=== PATIENT | female | born 1965 | race Hispanic/Latino ===

== ENCOUNTER 2019-03-12 18:44 | Emergency (ER) | payer SELFPAY ==
--- OUTSIDE RECORDS SUMMARY | 2019-03-12 18:46 | XMS REPORT ---
:1965 [facility] Address [address] [place] [address] Dr. James [address] [place] [address] Care Team Providers Name Role Phone Unavailable Unavailable Unavailable Problems This patient has no known problems. Allergies, Adverse Reactions, Alerts This patient has no known allergies or adverse reactions. Medications This patient has no known medications.
--- NOTE | 2019-03-12 19:49 | RAD REPORT ---
EXAM DESCRIPTION: CT - Head Brain Wo Cont - 03/12/2019 7:37 pm CLINICAL HISTORY: Headache COMPARISON: None TECHNIQUE: Computed axial tomography of the head was obtained. IV contrast was not requested. All CT scans are performed using dose optimization technique as appropriate and may include automated exposure control or mA/KV adjustment according to patient size. FINDINGS: An intracranial bleed is not seen . The ventricles are normal in caliber. No extra-axial fluid collection is noted. It appears that the patient has had a right mastoidectomy 4 centimeter low-density fluid collection within the posterior left aspect of the posterior fossa may represent an arachnoid cyst. Fluid within the sinuses/ mastoids is not seen. IMPRESSION: No acute intracranial abnormality is seen. If patient's symptoms persist MRI of the bra in would be recommended.
[2019-03-12] MEDS ORDERED: ACETAMINOPHEN 325 MG TABLET ONE (19:51)
--- NOTE | 2019-03-12 20:11 | ER ---
Nurse's Notes [facility] Name: Brianna Avila Age: 54 yrs Sex: Female : 1965 Arrival Date: 03/12/2019 Time: 18:47 Bed 20 Private MD: Diagnosis: Acute headache. Hypertension Presentation: 03/12 19:00 Presenting complaint: Patient states: i have a bad headache at the top of my head rr5 started today. I checked my BP it's 150/88 mmHg. I've been taking BP medicine before but I stop it for a long time. I feel my neck is swollen and I have nausea an vomiting. 19:00 Transition of care: patient was not received from another setting of care. Onset of rr5 symptoms was March 12, 2019. Risk Assessment: Do you want to hurt yourself or someone else? Patient reports no desire to harm self or others. Initial Sepsis Screen: Does the patient meet any 2 criteria? No. Patient's initial sepsis screen is negative. Does the patient have a suspected source of infection? No. Patient's initial sepsis screen is negative. Care prior to arrival: None. 19:00 Method Of Arrival: Ambulatory rr5 19:00 Acuity: IESHA 3 rr5 Triage Assessment: 19:40 Pain: Pain began 1 hour ago. Also complains of no other associated symptoms. 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 - Social history:: Smoking status: Patient/guardian denies using tobacco, Patient/guardian denies using alcohol, street drugs. - Ebola Screening: : Patient negative for fever greater than or equal to 101.5 degrees Fahrenheit, and additional compatible Ebola Virus Disease symptoms Patient denies exposure to infectious person Patient denies travel to an Ebola-affected area in the 21 days before illness onset. Screenin:58 Abuse screen: Denies threats or abuse. Denies injuries from another. Nutritional lp1 screening: No deficits noted. Tuberculosis screening: No symptoms or risk factors identified. Fall Risk None identified. Assessment: 19:40 General: Appears in no apparent distress. Behavior is calm, cooperative, appropriate lp1 for age. Pain: Complains of pain in head Pain currently is 7 out of 10 on a pain scale. Quality of pain is described as aching. Neuro: Level of Consciousness is awake, alert, obeys commands, Oriented to person, place, time, situation, Gait is steady, Pupils are PERRLA, Reports headache frontal area. Cardiovascular: Patient's skin is warm and dry. Respiratory: Respiratory effort is even, unlabored. GI: No deficits noted. : No deficits noted. EENT: No deficits noted. Derm: Skin is pink, warm \T\ dry. Musculoskeletal: No deficits noted. 20:24 Reassessment: Patient appears in no apparent distress at this time. Patient is alert, lp1 oriented x 3, equal unlabored respirations, skin warm/dry/pink. Patient states feeling better. Vital Signs: 19:00 BP 186 / 72; Pulse 64; Resp 17; Temp 98.5; Pulse Ox 99% ; Weight 87.54 kg; Height 5 ft. rr5 4 in. (162.56 cm); Pain 6/10; 19:40 BP 137 / 83; Pulse 60; Resp 18; Pulse Ox 98% on R/A; Pain 7/10; lp1 19:57 BP 140 / 83; Pulse 62; Resp 18; Pulse Ox 100% on R/A; lp1 20:23 BP 149 / 74; Pulse 60; Resp 16; Pulse Ox 99% on R/A; lp1 19:00 Body Mass Index 33.13 (87.54 kg, 162.56 cm) rr5 ED Course: 18:47 Patient arrived in ED. mr 19:04 Triage completed. rr5 19:07 Arm band placed on. rr5 19:12 Dae Mccauley MD is Attending Physician. pkl 19:29 Carla Alcantara, LEVAR is Primary Nurse. lp1 19:37 CT Head Brain wo Cont In Process Unspecified. EDMS 19:40 Patient has correct armband on for positive identification. lp1 19:58 No provider procedures requiring assistance completed. lp1 20:17 Patient did not have IV access during this emergency room visit. lp1 Administered Medications: 19:48 Drug: Tylenol 650 mg Route: PO; lp1 20:00 Follow up: Response: No adverse reaction lp1 Outcome: 20:06 Discharge ordered by . sonia 20:18 Discharged to home ambulatory. lp1 20:18 Condition: good 20:18 Discharge instructions given to patient, Instructed on discharge instructions, follow up and referral plans. medication usage, Demonstrated understanding of instructions, follow-up care, medications, Prescriptions given X 1. 20:24 Patient left the ED. lp1 Signatures: Dispatcher [employer] EDMS Dae Mccauley MD MD pkl Riverdomonique Debi mr JaquezCarla youssef, RN RN lp1 Abraham Dsouza RN RN rr5
--- NOTE | 2019-03-12 20:11 | EDPHYS ---
Physician Documentation [facility] Name: Brianna Avila Age: 54 yrs Sex: Female : 1965 Arrival Date: 03/12/2019 Time: 18:47 Bed 20 Private MD: ED Physician Dae Mccauley HPI: 03/12 19:25 This 54 yrs old Female presents to ER via Ambulatory with complaints of High pkl Blood Pressure, Headache, Stiff Neck. 19:25 The patient has elevated blood pressure and discovered this at home. Onset: The pkl symptoms/episode began/occurred today. Associated signs and symptoms: Pertinent positives: nausea. 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 - Social history:: Smoking status: Patient/guardian denies using tobacco, Patient/guardian denies using alcohol, street drugs. - Ebola Screening: : Patient negative for fever greater than or equal to 101.5 degrees Fahrenheit, and additional compatible Ebola Virus Disease symptoms Patient denies exposure to infectious person Patient denies travel to an Ebola-affected area in the 21 days before illness onset. ROS: 19:25 Eyes: Negative for injury, pain, redness, and discharge, ENT: Negative for injury, pkl pain, and discharge, Neck: Negative for injury, pain, and swelling, Cardiovascular: Negative for chest pain, palpitations, and edema, Respiratory: Negative for shortness of breath, cough, wheezing, and pleuritic chest pain. 19:25 Abdomen/GI: Positive for nausea. 19:25 Back: Negative for acute changes. 19:25 : Negative for urinary symptoms. 19:25 MS/extremity: Negative for acute changes. 19:25 Skin: Negative for rash. 19:25 Neuro: Positive for headache, of the top of head. Exam: 19:25 Head/Face: Normocephalic, atraumatic. Eyes: Pupils equal round and reactive to light, pkl extra-ocular motions intact. Lids and lashes normal. Conjunctiva and sclera are non-icteric and not injected. Cornea within normal limits. Periorbital areas with no swelling, redness, or edema. ENT: Nares patent. No nasal discharge, no septal abnormalities noted. Tympanic membranes are normal and external auditory canals are clear. Oropharynx with no redness, swelling, or masses, exudates, or evidence of obstruction, uvula midline. Mucous membranes moist. Neck: Trachea midline, no thyromegaly or masses palpated, and no cervical lymphadenopathy. Supple, full range of motion without nuchal rigidity, or vertebral point tenderness. No Meningismus. Chest/axilla: Normal chest wall appearance and motion. Nontender with no deformity. No lesions are appreciated. Cardiovascular: Regular rate and rhythm with a normal S1 and S2. No gallops, murmurs, or rubs. Normal PMI, no JVD. No pulse deficits. Respiratory: Lungs have equal breath sounds bilaterally, clear to auscultation and percussion. No rales, rhonchi or wheezes noted. No increased work of breathing, no retractions or nasal flaring. Abdomen/GI: Soft, non-tender, with normal bowel sounds. No distension or tympany. No guarding or rebound. No evidence of tenderness throughout. Back: No spinal tenderness. No costovertebral tenderness. Full range of motion. Skin: Warm, dry with normal turgor. Normal color with no rashes, no lesions, and no evidence of cellulitis. MS/ Extremity: Pulses equal, no cyanosis. Neurovascular intact. Full, normal range of motion. Neuro: Awake and alert, GCS 15, oriented to person, place, time, and situation. Cranial nerves II-XII grossly intact. Motor strength 5/5 in all extremities. Sensory grossly intact. Cerebellar exam normal. Normal gait. Vital Signs: 19:00 BP 186 / 72; Pulse 64; Resp 17; Temp 98.5; Pulse Ox 99% ; Weight 87.54 kg; Height 5 ft. rr5 4 in. (162.56 cm); Pain 6/10; 19:40 BP 137 / 83; Pulse 60; Resp 18; Pulse Ox 98% on R/A; Pain 7/10; lp1 19:57 BP 140 / 83; Pulse 62; Resp 18; Pulse Ox 100% on R/A; lp1 20:23 BP 149 / 74; Pulse 60; Resp 16; Pulse Ox 99% on R/A; lp1 19:00 Body Mass Index 33.13 (87.54 kg, 162.56 cm) rr5 MDM: 19:12 Patient medically screened. pkl 20:05 Data reviewed: vital signs, nurses notes, radiologic studies, CT scan. pk 03/12 20:15 Order name: Urine Dipstick--Ancillary (enter results) ar5 03/12 20:15 Order name: Urine --Ancillary (enter results) ar 03/12 19:25 Order name: CT Head Brain wo Cont; Complete Time: 20:01 pkl 03/12 20:06 Order name: Urine Test (obtain specimen); Complete Time: 20:14 lp1 Administered Medications: 19:48 Drug: Tylenol 650 mg Route: PO; lp1 20:00 Follow up: Response: No adverse reaction lp1 Disposition: 03/12/19 20:06 Discharged to Home. Impression: Acute headache. Hypertension. - Condition is Stable. - Prescriptions for Lisinopril 20 mg Oral Tablet - take 1 tablet by ORAL route once daily; 30 tablet. - Medication Reconciliation Form, Thank You Letter, Antibiotic Education, Prescription Opioid Use, Work release form form. - Follow up: Private Physician; When: 2 - 3 days; Reason: Re-evaluation by your physician. - Problem is new. - Symptoms have improved. Signatures: Dispatcher [employer] EDDae Maloney MD MD pkl Carla Alcantara RN RN lp1 Abraham Dsouza RN RN rr5 Corrections: (The following items were deleted from the chart) 20:24 20:06 03/12/2019 20:06 Discharged to Home. Impression: Acute headache. Hypertension. lp1 Condition is Stable. Forms are Medication Reconciliation Form, Thank You Letter, Antibiotic Education, Prescription Opioid Use. Follow up: Private Physician; When: 2 - 3 days; Reason: Re-evaluation by your physician. Problem is new. Symptoms have improved. pkl
[2019-03-12 20:31] LABS: Urine Blood TRACE (NEG); Urine Glucose NEGATIVE (NEG); Urine Protein NEGATIVE (NEG); Urine Specific Gravity 1.015 (1.005-1.030)
[2019-03-12 21:57] VITALS: TEMP 98.5; O2SAT 99
[2019-03-12 22:02] VITALS: BP 149/74
== END 2019-03-12 20:24 | disposition home or self-care (01) ==
LOC: ER 18:44
DX: I10 Essential (primary) hypertension (principal); Z88.5 Allergy status to narcotic agent
CPT/HCPCS: 70450; 81003; 81025; 99283

== ENCOUNTER 2019-06-05 01:41 | Emergency (ER) | payer SELFPAY ==
--- OUTSIDE RECORDS SUMMARY | 2019-06-05 01:43 | XMS REPORT ---
:1965 [facility] Address [address] [place] [address] Dr. James [address] [place] [address] Care Team Providers Name Role Phone Unavailable Unavailable Unavailable Problems This patient has no known problems. Allergies, Adverse Reactions, Alerts This patient has no known allergies or adverse reactions. Medications This patient has no known medications.
[2019-06-05 03:09] LABS: Absolute Lymphocytes (CBC) 2.9 K/uL (0.7-4.9); Basophils % 0.5 % (0-1.3); Hematocrit 40.5 % (36.0-45.0); Lymphocytes % 33.4 % (15.3-44.8); MPV 8.4 fL (7.6-11.3)
[2019-06-05 03:15] LABS: Potassium 3.5 mmol/L (3.5-5.1)
--- NOTE | 2019-06-05 03:33 | ER ---
Nurse's Notes [facility] Name: Brianna Avila Age: 54 yrs Sex: Female : 1965 Arrival Date: 06/05/2019 Time: 01:49 Bed 15 Private MD: Diagnosis: Hypertension Presentation: 06/04 02:02 Chief complaint: Patient states: i checked my blood pressure and it was 174/100 at home mg2 and i also have pain behind my shoulder blades. i recently lost my last Tuesday and I also lost my meds for blood pressure and last time i took it was 6 days ago. Coronavirus screen: Patient denies fever greater than 100.4F, cough, shortness of breath, or difficulty breathing. Proceed with normal triage process. Ebola Screen: No symptoms or risks identified at this time. Initial Sepsis Screen: Does the patient meet any 2 criteria? No. Patient's initial sepsis screen is negative. Does the patient have a suspected source of infection? No. Patient's initial sepsis screen is negative. Risk Assessment: Do you want to hurt yourself or someone else? Patient reports no desire to harm self or others. 02:02 Method Of Arrival: Ambulatory mg2 02:02 Acuity: IESHA 3 mg2 02:12 Onset of symptoms was June 04, 2019. 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 - Social history:: Smoking status: Patient denies any tobacco usage or history of. Patient/guardian denies using alcohol, street drugs, IV drugs. Screenin:08 Abuse screen: Denies threats or abuse. Denies injuries from another. Nutritional mg2 screening: No deficits noted. Tuberculosis screening: No symptoms or risk factors identified. Fall Risk None identified. Assessment: 02:10 General: Appears in no apparent distress. comfortable, Behavior is calm, cooperative. mg2 Pain: Complains of pain in back of the upper back. Neuro: Level of Consciousness is awake, alert, obeys commands, Oriented to person, place, time, situation. Cardiovascular: Capillary refill < 3 seconds Patient's skin is warm and dry. Respiratory: Airway is patent Respiratory effort is even, unlabored, Respiratory pattern is regular, symmetrical. GI: No signs and/or symptoms were reported involving the gastrointestinal system. : No signs and/or symptoms were reported regarding the genitourinary system. EENT: No signs and/or symptoms were reported regarding the EENT system. Derm: Skin is intact, is healthy with good turgor, Skin is pink, warm \T\ dry. normal. Musculoskeletal: Circulation, motion, and sensation intact. Capillary refill < 3 seconds. 03:32 Reassessment: Patient and/or family updated on plan of care and expected duration. Pain ea level reassessed. Patient is alert, oriented x 3, equal unlabored respirations, skin warm/dry/pink. 03:42 Reassessment: Patient and/or family updated on plan of care and expected duration. Pain ea level reassessed. Patient is alert, oriented x 3, equal unlabored respirations, skin warm/dry/pink. Discharge instruction given to patient, verbalized the understanding of instruction. Pt left ED ambulatory accompanied accompanied by daughter. Pt tolerated well. Vital Signs: 02:07 BP 138 / 69; Pulse 56; Resp 18; Temp 98.2; Pulse Ox 100% on R/A; mg2 02:57 BP 119 / 59; Pulse 57; Resp 18; Pulse Ox 100% on R/A; mg2 03:35 BP 130 / 76; Pulse 54; Resp 16; Pulse Ox 97% ; ea ED Course: 01:49 Patient arrived in ED. cf2 01:53 Dae Mccauley MD is Attending Physician. pkl 02:02 Itz Carvajal, LEVAR is Primary Nurse. mg2 02:05 Triage completed. mg2 02:05 Arm band placed on. mg2 02:11 Patient has correct armband on for positive identification. mg2 02:47 XRAY CXR (1 view) In Process Unspecified. EDMS 03:32 No provider procedures requiring assistance completed. ea 03:36 IV discontinued, intact, bleeding controlled, No redness/swelling at site. Pressure ea dressing applied. Administered Medications: No medications were administered Outcome: 03:33 Discharge ordered by . pkl 03:43 Discharged to home ambulatory. ea 03:43 Condition: stable 03:43 Discharge instructions given to patient, Instructed on discharge instructions, follow up and referral plans. medication usage, Demonstrated understanding of instructions, follow-up care, medications, Prescriptions given X 1. 03:44 Patient left the ED. ea Signatures: Dispatcher [employer] Dae Brown MD MD pkl Antunez, Elena RN Itz Dukes ea, RN RN mg2 Frazier, Celesta [facility]
--- NOTE | 2019-06-05 03:34 | EDPHYS ---
Physician Documentation [facility] Name: Brianna Avila Age: 54 yrs Sex: Female : 1965 Arrival Date: 06/05/2019 Time: 01:49 Bed 15 Private MD: ED Physician Dae Mccauley HPI: 06/04 02:34 This 54 yrs old Female presents to ER via Ambulatory with complaints of High pkl Blood Pressure. 02:34 Patient said she was out of BP medication for about 1 week. Checked her BP today and pkl noted it was 174/100. Patient also complained of pain in her upper back and suprapubic region. 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 - Social history:: Smoking status: Patient denies any tobacco usage or history of. Patient/guardian denies using alcohol, street drugs, IV drugs. ROS: 02:34 Eyes: Negative for injury, pain, redness, and discharge, ENT: Negative for injury, pkl pain, and discharge, Neck: Negative for injury, pain, and swelling, Cardiovascular: Negative for chest pain, palpitations, and edema, Respiratory: Negative for shortness of breath, cough, wheezing, and pleuritic chest pain. 02:34 Abdomen/GI: Positive for abdominal pain, of the suprapubic area. 02:34 Back: Positive for pain at rest, of the upper back. 02:34 : Negative for urinary symptoms. 02:34 MS/extremity: Negative for acute changes. 02:34 Skin: Negative for rash. 02:34 Neuro: Negative for altered mental status, loss of consciousness. Exam: 02:34 Head/Face: Normocephalic, atraumatic. Eyes: Pupils equal round and reactive to light, pkl extra-ocular motions intact. Lids and lashes normal. Conjunctiva and sclera are non-icteric and not injected. Cornea within normal limits. Periorbital areas with no swelling, redness, or edema. ENT: Nares patent. No nasal discharge, no septal abnormalities noted. Tympanic membranes are normal and external auditory canals are clear. Oropharynx with no redness, swelling, or masses, exudates, or evidence of obstruction, uvula midline. Mucous membranes moist. Neck: Trachea midline, no thyromegaly or masses palpated, and no cervical lymphadenopathy. Supple, full range of motion without nuchal rigidity, or vertebral point tenderness. No Meningismus. Chest/axilla: Normal chest wall appearance and motion. Nontender with no deformity. No lesions are appreciated. Cardiovascular: Regular rate and rhythm with a normal S1 and S2. No gallops, murmurs, or rubs. Normal PMI, no JVD. No pulse deficits. Respiratory: Lungs have equal breath sounds bilaterally, clear to auscultation and percussion. No rales, rhonchi or wheezes noted. No increased work of breathing, no retractions or nasal flaring. Abdomen/GI: Soft, non-tender, with normal bowel sounds. No distension or tympany. No guarding or rebound. No evidence of tenderness throughout. Back: No spinal tenderness. No costovertebral tenderness. Full range of motion. Skin: Warm, dry with normal turgor. Normal color with no rashes, no lesions, and no evidence of cellulitis. MS/ Extremity: Pulses equal, no cyanosis. Neurovascular intact. Full, normal range of motion. Neuro: Awake and alert, GCS 15, oriented to person, place, time, and situation. Cranial nerves II-XII grossly intact. Motor strength 5/5 in all extremities. Sensory grossly intact. Cerebellar exam normal. Normal gait. Vital Signs: 02:07 BP 138 / 69; Pulse 56; Resp 18; Temp 98.2; Pulse Ox 100% on R/A; mg2 02:57 BP 119 / 59; Pulse 57; Resp 18; Pulse Ox 100% on R/A; mg2 03:35 BP 130 / 76; Pulse 54; Resp 16; Pulse Ox 97% ; ea MDM: 01:54 Patient medically screened. pkl 03:29 Data reviewed: vital signs, nurses notes, lab test result(s), EKG, radiologic studies, pkl plain films. 03:30 ED course: Discussed lab. EKG and X' rays results with patient. Advised to follow with pkl her PCP next week, Patient understood instructions. 06/04 02:18 Order name: CBC with Diff; Complete Time: 03:27 pkl 06/04 02:18 Order name: Chem 7; Complete Time: 03:21 pkl 06/04 02:18 Order name: EKG; Complete Time: 02:18 pkl 06/04 02:18 Order name: XRAY CXR (1 view) pkl Administered Medications: No medications were administered Disposition: 06/05/19 03:33 Discharged to Home. Impression: Hypertension. - Condition is Stable. - Prescriptions for Lisinopril 10 mg Oral Tablet - take 1 tablet by ORAL route once daily; 30 tablet. - Medication Reconciliation Form, Thank You Letter, Antibiotic Education, Prescription Opioid Use form. - Follow up: Private Physician; When: 1 week; Reason: Re-evaluation by your physician. - Problem is new. - Symptoms have improved. Signatures: Dispatcher [employer] EDMS Dae Mccauley MD MD pkl Antunez, Elena, RN RN ea Gardose, Michele, RN RN mg2 Corrections: (The following items were deleted from the chart) 03:44 03:33 06/05/2019 03:33 Discharged to Home. Impression: Hypertension. Condition is ea Stable. Forms are Medication Reconciliation Form, Thank You Letter, Antibiotic Education, Prescription Opioid Use. Follow up: Private Physician; When: 1 week; Reason: Re-evaluation by your physician. Problem is new. Symptoms have improved. pkl
[2019-06-05 03:59] VITALS: TEMP 98.2
[2019-06-05 04:01] VITALS: BP 130/76; O2SAT 97
--- NOTE | 2019-06-05 07:16 | RAD REPORT ---
EXAM DESCRIPTION: RAD - Chest Single View - 06/05/2019 2:47 am CLINICAL HISTORY: CHEST PAIN COMPARISON: March 2017 portable TECHNIQUE: AP portable chest image was obtained 06/05/2019 2:47 am . FINDINGS: Lungs are clear. Heart and vasculature are normal. No measurable pleural effusion and no p neumothorax. No acute bony abnormality seen. No acute aortic findings suspected. IMPRESSION: No acute cardiopulmonary process. No significant change from comparison.
--- NOTE | 2019-06-05 10:00 | EKG ---
Test Date: 2019-06-05 Test Time: 02:34:11 Carpet Inspector Finished: NATHAN MEASUREMENT RESULTS: Intervals: Rate: 50 AK: 166 QRSD: 98 QT: 440 QTc: 401 [place]: P: 38 AK: 166 QRS: 0 T: 35 INTERPRETIVE STATEMENTS: Sinus bradycardia with premature atrial complexes with aberrant conduction Otherwise normal ECG Compared to ECG 07/12/2015 01:07:33 Atrial premature complex(es) now present Aberrant conduction of supraventricular beat(s) now present Sinus rhythm no longer present Electronically Signed On 06-05-19 09:59:50 CDT by Syd Peña
== END 2019-06-05 03:44 | disposition home or self-care (01) ==
LOC: ER 01:41
DX: I10 Essential (primary) hypertension (principal); Z88.5 Allergy status to narcotic agent
CPT/HCPCS: 36415; 71045; 80048; 85025; 93005; 99283

== ENCOUNTER 2020-06-27 12:49 | Emergency (ER) | payer SELFPAY ==
--- OUTSIDE RECORDS SUMMARY | 2020-06-27 12:52 | XMS REPORT | Continuity of Care Document ---
:1965 Author Organization [facility] t Address [address] [place] [address] Dr. James [address] [place] [id number] Care Team Providers Name Role Phone Unavailable Unavailable Unavailable Problems This patient has no known problems. Allergies, Adverse Reactions, Alerts This patient has no known allergies or adverse reactions. Medications This patient has no known medications. Procedures This patient has no known procedures. Results This patient has no known results.
--- NOTE | 2020-06-27 13:20 | EDPHYS ---
Physician Documentation [facility] [place], [place] Name: Brianna Avila Age: 55 yrs Sex: Female : 1965 Arrival Date: 06/27/2020 Time: 12:52 Bed 5 Private MD: ED Physician Michele Everett HPI: 06/27 13:17 This 55 yrs old Female presents to ER via Ambulatory with complaints of jmm Allergic Reaction, scalp swelling. 13:17 The patient presents with itching, localized swelling, rash. Onset: The jmm symptoms/episode began/occurred gradually, 2 day(s) ago. Associated signs and symptoms: Pertinent positives: chest pain. Possible causes: hair dye. This is a 55 year old female with a history of htn that presents to the ED with complaints of swelling to her scalp, itching, beginning after using a hair dye. Patient also complains substernal chest pain beginning this morning around 6 am. Pain is described as mild, does not radiate. Has been constant since. . Historical: - Allergies: 13:08 Hydrocodone-Acetaminophen; iw - Home Meds: 13:08 None [Active]; iw - PMHx: 13:08 Hypertension; iw - PSHx: 13:08 tubal ; iw - Immunization history:: Adult Immunizations not up to date. - Social history:: Smoking status: . ROS: 13:17 Constitutional: Negative for fever, chills, and weight loss, Respiratory: Negative for jmm shortness of breath, cough, wheezing, and pleuritic chest pain. 13:17 Cardiovascular: Positive for chest pain. 13:17 All other systems are negative. Exam: 13:17 Constitutional: This is a well developed, well nourished patient who is awake, alert, jmm and in no acute distress. 13:17 ENT: Moist Mucus Membranes Neck: Trachea midline, Supple Chest/axilla: Normal chest wall appearance and motion. Cardiovascular: Regular rate and rhythm. No edema appreciated Respiratory: Normal respirations, no respiratory distress appreciated Abdomen/GI: Non distended, soft Back: Normal ROM Skin: General appearance color normal MS/ Extremity: Moves all extremities, no obvious deformities appreciated, no edema noted to the lower extremities Neuro: Awake and alert, normal gait Psych: Behavior is normal, Mood is normal, Patient is cooperative and pleasant 13:17 Head/face: erythema noted to the scalp diffusely. Vital Signs: 13:06 BP 152 / 74; Pulse 64; Resp 16; Temp 98.4(TE); Pulse Ox 100% on R/A; Pain 7/10; iw 13:51 BP 148 / 79; Pulse 51; Resp 17; Pulse Ox 100% ; Pain 3/10; jl7 15:11 BP 126 / 72; Pulse 64; Resp 16; Pulse Ox 96% ; jl7 MDM: 13:17 Patient medically screened. [facility] 13:18 Data reviewed: vital signs, nurses notes. Counseling: I had a detailed discussion with jb the patient and/or guardian regarding: the historical points, exam findings, and any diagnostic results supporting the discharge/admit diagnosis, the need for outpatient follow up, to return to the emergency department if symptoms worsen or persist or if there are any questions or concerns that arise at home. 15:17 ED course: Patient stated she had developed chest pain upon initial discharge. Patient jmm was evaluated with negative enzymes. Patient stated the pain has resolved. Patient declined second set of enzymes and will return to the ED if symptoms return. . 06/27 13:31 Order name: Basic Metabolic Panel eb 06/27 13:31 Order name: CBC with Diff eb 06/27 13:31 Order name: LFT's; Complete Time: 15:04 eb 06/27 13:31 Order name: Magnesium; Complete Time: 15:04 eb 06/27 13:31 Order name: NT PRO-BNP; Complete Time: 15:04 eb 06/27 13:31 Order name: PT-INR; Complete Time: 14:06 eb 06/27 13:31 Order name: Troponin (emerg Dept Use Only); Complete Time: 15:04 eb 06/27 13:31 Order name: XRAY Chest (1 view); Complete Time: 14:25 eb 06/27 13:31 Order name: EKG; Complete Time: 13:32 eb 06/27 13:31 Order name: Cardiac monitoring; Complete Time: 13:48 eb 06/27 13:31 Order name: EKG - Nurse/Tech; Complete Time: 13:48 eb 06/27 13:31 Order name: IV Saline Lock; Complete Time: 13:53 eb 06/27 13:32 Order name: Basic Metabolic Panel; Complete Time: 15:04 EDTN 06/27 13:32 Order name: CBC with Automated Diff; Complete Time: 14:06 [facility] 06/27 13:31 Order name: Labs collected and sent; Complete Time: 13:53 06/27 13:31 Order name: O2 Per Protocol; Complete Time: 13:53 eb 06/27 13:31 Order name: O2 Sat Monitoring; Complete Time: 13:53 Administered Medications: No medications were administered Disposition: 18:46 Co-signature as Attending Physician, Michele Everett MD I agree with the assessment and [facility] plan of care. Disposition: 06/27/20 15:19 Discharged to Home. Impression: Chest pain, unspecified, Scalp Dermatitis. - Condition is Stable. - Discharge Instructions: Nonspecific Chest Pain, Contact Dermatitis. - Prescriptions for Hydroxyzine HCl 25 mg Oral Tablet - take 1 tablet by ORAL route every 6 hours As needed; 30 tablet. Medrol (Ricky) 4 mg Oral Tablets, Dose Pack - take 1 tablet by ORAL route as directed - follow package instructions; 1 packet. Bactrim DS 800- 160 mg Oral Tablet - take 1 tablet by ORAL route every 12 hours for 10 days; 20 tablet. - Medication Reconciliation Form, Thank You Letter, Antibiotic Education, Prescription Opioid Use, Work release form form. - Follow up: Private Physician; When: 2 - 3 days; Reason: Recheck today's complaints, Continuance of care, Re-evaluation by your physician. Signatures: Dispatcher [employer] [facility] Conor Chang PA PA [facility] Dalila Galicia RN RN iw Peltier, Brian, RN RN bp Wadley, Terrence, MD MD [facility] Nayeli Krueger Corrections: (The following items were deleted from the chart) 13:36 13:19 06/27/2020 13:19 Discharged to Home. Impression: Cellulitis of the Scalp. [facility] Condition is Stable. Forms are Medication Reconciliation Form, Thank You Letter, Antibiotic Education, Prescription Opioid Use. Follow up: Private Physician; When: 2 - 3 days; Reason: Recheck today's complaints, Continuance of care, Re-evaluation by your physician. [facility] 16:00 15:19 06/27/2020 15:19 Discharged to Home. Impression: Chest pain, unspecified; Scalp bp Dermatitis. Condition is Stable. Prescriptions for Hydroxyzine HCl 25 mg Oral Tablet - take 1 tablet by ORAL route every 6 hours As needed; 30 tablet, Medrol (Ricky) 4 mg Oral Tablets, Dose Pack - take 1 tablet by ORAL route as directed - follow package instructions; 1 packet, Bactrim DS 800-160 mg Oral Tablet - take 1 tablet by ORAL route every 12 hours for 10 days; 20 tablet. and Forms are Medication Reconciliation Form, Thank You Letter, Antibiotic Education, Prescription Opioid Use. Follow up: Private Physician; When: 2 - 3 days; Reason: Recheck today's complaints, Continuance of care, Re-evaluation by your physician. jb
--- NOTE | 2020-06-27 13:20 | ER ---
Nurse's Notes [facility] Name: Brianna Avila Age: 55 yrs Sex: Female : 1965 Arrival Date: 06/27/2020 Time: 12:52 Bed 5 Private MD: Diagnosis: Chest pain, unspecified;Scalp Dermatitis Presentation: 06/27 13:06 Chief complaint: Patient states: dyed her hair on Tuesday, had a reaction to it, now iw has irritation and burning to her scalp. Coronavirus screen: At this time, the client does not indicate any symptoms associated with coronavirus-19. Ebola Screen: Patient negative for fever greater than or equal to 101.5 degrees Fahrenheit, and additional compatible Ebola Virus Disease symptoms Patient denies exposure to infectious person. Patient denies travel to an Ebola-affected area in the 21 days before illness onset. No symptoms or risks identified at this time. Onset: The symptoms/episode began/occurred 2 day(s) ago. Anaphylaxis evaluation, no signs or symptoms of anaphylaxis were noted. Initial Sepsis Screen: Does the patient meet any 2 criteria? No. Patient's initial sepsis screen is negative. Does the patient have a suspected source of infection? No. Patient's initial sepsis screen is negative. Risk Assessment: Do you want to hurt yourself or someone else? Patient reports no desire to harm self or others. Onset of symptoms was June 25, 2020. 13:06 Method Of Arrival: Ambulatory iw 13:06 Acuity: IESHA 3 iw Historical: - Allergies: 13:08 Hydrocodone-Acetaminophen; iw - Home Meds: 13:08 None [Active]; iw - PMHx: 13:08 Hypertension; iw - PSHx: 13:08 tubal ; iw - Immunization history:: Adult Immunizations not up to date. - Social history:: Smoking status: . Screenin:51 Abuse screen: Denies threats or abuse. Denies injuries from another. Nutritional jl7 screening: No deficits noted. Tuberculosis screening: No symptoms or risk factors identified. Fall Risk IV access (20 points). Total Coppola Fall Scale indicates No Risk (0-24 pts). Assessment: 13:15 General: Appears in no apparent distress. uncomfortable, Behavior is calm, cooperative, jl7 appropriate for age. Pain: Complains of pain in mid-sternal area Pain does not radiate. Pain currently is 3 out of 10 on a pain scale. Quality of pain is described as squeezing, Pain began 1 hour ago. Is continuous. Neuro: Level of Consciousness is awake, alert, obeys commands, Oriented to person, place, time, situation, Moves all extremities. Full function Speech is normal. Cardiovascular: Heart tones present Patient's skin is warm and dry. Rhythm is. Respiratory: Airway is patent Respiratory effort is even, unlabored, Respiratory pattern is regular, symmetrical, Breath sounds are clear bilaterally. Derm: Skin is pink, warm \T\ dry. Rash noted that is red, on base of the skull. 13:30 Reassessment: ERP notified of CP complaint, new orders recieved. jl7 15:11 Reassessment: Patient appears in no apparent distress at this time. No changes from jl7 previously documented assessment. Patient and/or family updated on plan of care and expected duration. Pain level reassessed. Patient is alert, oriented x 3, equal unlabored respirations, skin warm/dry/pink. 15:59 Reassessment: PT D/C HOME AMBULATORY, DX WITH SCALP DERMATITIS. bp Vital Signs: 13:06 BP 152 / 74; Pulse 64; Resp 16; Temp 98.4(TE); Pulse Ox 100% on R/A; Pain 7/10; iw 13:51 BP 148 / 79; Pulse 51; Resp 17; Pulse Ox 100% ; Pain 3/10; jl7 15:11 BP 126 / 72; Pulse 64; Resp 16; Pulse Ox 96% ; jl7 ED Course: 03:47 Inserted saline lock: 20 gauge in left antecubital area, using aseptic technique. Blood jl7 collected. 12:52 Patient arrived in ED. as 13:07 Triage completed. iw 13:09 Arm band placed on. iw 13:10 Conor Chang PA is PHCP. [facility] 13:10 Michele Everett MD is Attending Physician. [facility] 13:12 Madhav Christopher RN is Primary Nurse. jl7 13:46 Patient has correct armband on for positive identification. Placed in gown. Bed in low mh5 position. Call light in reach. Side rails up X 1. Warm blanket given. school bus monitor on. Pulse ox on. NIBP on. 13:47 Initial lab(s) drawn, by ED staff, sent to lab. EKG done, by ED staff, reviewed by Conor GIPSON. 14:04 Basic Metabolic Panel Sent. [facility] 14:04 CBC with Diff Sent. [facility] 14:12 XRAY Chest (1 view) In Process Unspecified. EDMS 15:55 No provider procedures requiring assistance completed. IV discontinued, intact, iw bleeding controlled, No redness/swelling at site. Pressure dressing applied. Administered Medications: No medications were administered Outcome: 13:19 Discharge ordered by . opal 15:19 Discharge ordered by . [facility] 15:59 Discharged to home ambulatory. bp 15:59 Condition: stable 15:59 Discharge instructions given to patient, Instructed on discharge instructions, follow up and referral plans. medication usage, Demonstrated understanding of instructions, follow-up care, medications, Prescriptions given X 3. 16:00 Patient left the ED. bp Signatures: Dispatcher [employer] EDSD Conor Chang PA PA jmm Martinez, Amelia as Williams, Irene, LEVAR RN Janet Vazquez Madhav Albrecht RN RN jl7 Goyo Hicks, LEVAR RN bp
[2020-06-27 13:54] LABS: Absolute Lymphocytes (CBC) 1.7 K/uL (0.7-4.9); Basophils % 0.3 % (0-1.3); Hematocrit 40.9 % (36.0-45.0); Lymphocytes % 26.9 % (15.3-44.8); RBC Red Blood Cell Count 4.47 M/uL (3.86-4.86)
[2020-06-27 13:58] LABS: Protime INR 1.01
--- NOTE | 2020-06-27 14:24 | RAD REPORT ---
EXAM DESCRIPTION: RAD - Chest Single View - 06/27/2020 2:11 pm CLINICAL HISTORY: CHEST PAIN COMPARISON: Portable June 04 TECHNIQUE: AP portable chest image was obtained 06/27/2020 2:11 pm . FINDINGS: Lungs are clear. Interstitial pattern matches comparison. Heart and vasculature are normal . No measurable pleural effusion and no pneumothorax. No acute bony abnormality seen. No acute aortic findings suspected. IMPRESSION: No acute cardiopulmonary process. No significant change from comparison study.
[2020-06-27 14:36] LABS: ALT/SGPT 22 U/L (12-78); AST/SGOT 14 U/L (15-37); Albumin 3.8 g/dL (3.4-5.0); Alkaline Phosphatase 92 U/L (45-117); BUN Blood Urea Nitrogen 13 mg/dL (7-18); Bicarbonate 28 mmol/L (21-32); Bilirubin Direct 0.3 mg/dL (0-0.2); Bilirubin Total 1.5 mg/dL (0.2-1.0); Glucose Level 88 mg/dL (74-106); Magnesium 2.3 mg/dL (1.8-2.4); NT PRO-BNP 35 pg/mL (<125); Potassium 3.6 mmol/L (3.5-5.1); Protein, Total 7.5 g/dL (6.4-8.2); Sodium Level 142 mmol/L (136-145); Troponin (Emerg Dept Use Only) < 0.02 ng/mL (0.0-0.045)
[2020-06-27 16:05] VITALS: TEMP 98.4
[2020-06-27 16:09] VITALS: BP 126/72; O2SAT 96
== END 2020-06-27 16:00 | disposition home or self-care (01) ==
LOC: ER 12:49
DX: L30.9 Dermatitis, unspecified (principal); I10 Essential (primary) hypertension; Z88.5 Allergy status to narcotic agent
CPT/HCPCS: 36415; 71045; 80048; 80076; 83735; 83880; 84484; 85025; 85610; 93005; 99284

== ENCOUNTER 2020-06-29 17:11 | Emergency (ER) | payer SELFPAY ==
--- OUTSIDE RECORDS SUMMARY | 2020-06-29 17:13 | XMS REPORT | Continuity of Care Document ---
:1965 Author Organization [facility] t Address [address] [place] [address] Dr. James [address] [place] [id number] Care Team Providers Name Role Phone Unavailable Unavailable Unavailable Problems This patient has no known problems. Allergies, Adverse Reactions, Alerts This patient has no known allergies or adverse reactions. Medications This patient has no known medications. Procedures This patient has no known procedures. Results This patient has no known results.
[2020-06-29] MEDS ORDERED: DIPHENHYDRAMINE 25 MG TAB/CAP ONE (18:41)
[2020-06-29] MEDS ORDERED: dexAMETHasone 10 MG/ML VIAL ONE (18:42)
[2020-06-29] MEDS ORDERED: FAMOTIDINE 20 MG TAB ONE (18:42)
[2020-06-29] MEDS ORDERED: TRAMADOL HCL 50 MG TAB ONE (18:44)
--- NOTE | 2020-06-29 18:49 | EDPHYS ---
Physician Documentation [facility] Name: Brianna Avila Age: 55 yrs Sex: Female : 1965 Arrival Date: 06/29/2020 Time: 17:11 Bed 19 Private MD: ED Physician Jose Luis Couch HPI: 06/29 17:49 This 55 yrs old Female presents to ER via Ambulatory with complaints of pm1 Allergic Reaction, Neck Swelling. 17:49 The patient presents with itching, rash. Onset: The symptoms/episode began/occurred pm1 today. Associated signs and symptoms: Pertinent negatives: fever, shortness of breath. Possible causes: Patient was prescribed hydroxyzine, bactrim, and Medrol dose Ricky 2 days ago for complaint of burn to scalp from hair dye. The patient is not taking the steroid. Patient reports never taking Bactrim in the past. At home the patient or guardian has treated the symptoms with nothing. Severity of symptoms: in the emergency department the symptoms are worse. The patient has not experienced similar symptoms in the past. The patient has been recently seen at the [facility] Emergency Department, this week, for chemical burn to scalp from hair dye. Historical: - Allergies: 17:18 Hydrocodone-Acetaminophen; jd3 - Home Meds: 17:18 lisinopril Oral [Active]; jd3 - PMHx: 17:18 Hypertension; jd3 - PSHx: 17:18 tubal ; jd3 - Immunization history:: Adult Immunizations not immunized. - Social history:: Smoking status: Patient denies any tobacco usage or history of. ROS: 17:49 Constitutional: Negative for fever, chills, and weight loss. pm1 17:49 Eyes: Negative for injury, pain, redness, and discharge, ENT: Negative for injury, pain, and discharge, Cardiovascular: Negative for chest pain, palpitations, and edema, Respiratory: Negative for shortness of breath, cough, wheezing, and pleuritic chest pain. 17:49 Abdomen/GI: Negative for abdominal pain, nausea, vomiting, diarrhea, and constipation, Back: Negative for injury and pain, MS/Extremity: Negative for injury and deformity. 17:49 Neuro: Negative for headache, weakness, numbness, tingling, and seizure. 17:49 Neck: Positive for swollen nodes, Negative for bony tenderness. 17:49 Skin: Positive for rash, of the face, chest and right arm, itching. Exam: 17:49 Constitutional: This is a well developed, well nourished patient who is awake, alert, pm1 and in no acute distress. Head/Face: Normocephalic, atraumatic. 17:49 Back: No spinal tenderness. No costovertebral tenderness. Full range of motion. 17:49 Cardiovascular: Exam negative for acute changes, Rate: normal, Rhythm: regular, Pulses: no pulse deficits are appreciated. 17:49 Respiratory: Exam negative for acute changes, respiratory distress, shortness of breath, Breath sounds: are clear throughout. 17:49 Abdomen/GI: Exam negative for acute changes, Inspection: abdomen appears normal, Palpation: abdomen is soft and non-tender, in all quadrants. 17:49 Skin: Appearance: normal except for affected area, consistent with urticaria, on the face, chest and dorsal aspect of right forearm. 17:49 Neuro: Exam negative for acute changes, Orientation: is normal, Mentation: is normal, Motor: is normal, moves all fours, Gait: is steady, at a normal pace, without difficulty. Vital Signs: 17:18 BP 164 / 93; Pulse 63; Resp 16 S; Temp 97.9(TE); Pulse Ox 97% on R/A; Weight 80.74 kg jd3 (R); Height 5 ft. 4 in. (162.56 cm) (R); Pain 7/10; 17:18 Body Mass Index 30.55 (80.74 kg, 162.56 cm) jd3 MDM: 17:43 Patient medically screened. [facility] 17:52 ED course: Patient did not start taking Medrol dose Ricky prescribed two days ago. Only pm1 medication she is currently taking is th bactrim and hydroxyzine. Patient mostly allergic to the bactrim. Instructed her to stop taking the bactrim and to take Medrol dose Ricky as directed. I will prescribe her doxycycline to replace the bactrim. 18:48 Data reviewed: vital signs. Data interpreted: Pulse oximetry: on room air is 97 %. pm1 Interpretation: normal. Counseling: I had a detailed discussion with the patient and/or guardian regarding: the historical points, exam findings, and any diagnostic results supporting the discharge/admit diagnosis, the need for outpatient follow up, to return to the emergency department if symptoms worsen or persist or if there are any questions or concerns that arise at home. Administered Medications: 18:00 Drug: Decadron (dexamethasone) 10 mg Route: IM; Site: left deltoid; bp 19:02 Follow up: Response: No adverse reaction bp 18:00 Drug: traMADol 50 mg Route: PO; bp 19:02 Follow up: Response: No adverse reaction bp 18:00 Drug: Pepcid (famotidine) 20 mg Route: PO; bp 19:02 Follow up: Response: No adverse reaction bp 18:00 Drug: Benadryl (diphenhydrAMINE) 25 mg Route: PO; bp 19:02 Follow up: Response: No adverse reaction bp Disposition: 06/30 08:49 Co-signature as Attending Physician, Jose Luis Couch MD I agree with the assessment and [facility] plan of care. Disposition: 06/29/20 18:49 Discharged to Home. Impression: Urticaria, unspecified. - Condition is Stable. - Discharge Instructions: Hives. - Prescriptions for Doxycycline Hyclate 100 mg Oral Tablet - take 1 tablet by ORAL route every 12 hours; 20 tablet. Medrol (Ricky) 4 mg Oral Tablets, Dose Pack - take 1 tablet by ORAL route as directed - follow package instructions; 1 packet. - Medication Reconciliation Form, Thank You Letter, Antibiotic Education, Prescription Opioid Use form. - Follow up: Emergency Department; When: As needed; Reason: Worsening of condition. Follow up: Private Physician; When: 2 - 3 days; Reason: Recheck today's complaints, Continuance of care, Re-evaluation by your physician. - Problem is new. - Symptoms have improved. Signatures: Jose Luis Couch MD MD cha Marinas, Patrick, DIRECTOR PHARMACOLOGY DIRECTOR PHARMACOLOGY pm1 Gustabo Yoder RN RN jd3 Goyo Hicks RN RN bp Corrections: (The following items were deleted from the chart) 06/29 19:02 18:49 06/29/2020 18:49 Discharged to Home. Impression: Urticaria, unspecified. bp Condition is Stable. Forms are Medication Reconciliation Form, Thank You Letter, Antibiotic Education, Prescription Opioid Use. Follow up: Emergency Department; When: As needed; Reason: Worsening of condition. Follow up: Private Physician; When: 2 - 3 days; Reason: Recheck today's complaints, Continuance of care, Re-evaluation by your physician. Problem is new. Symptoms have improved. pm1
--- NOTE | 2020-06-29 18:49 | ER ---
Nurse's Notes [facility] Name: Brianna Avila Age: 55 yrs Sex: Female : 1965 Arrival Date: 06/29/2020 Time: 17:11 Bed 19 Private MD: Diagnosis: Urticaria, unspecified Presentation: 06/29 17:15 Chief complaint: Patient states: "I was seen recently here for an allergic reaction to jd3 the hair dye. I think I might be allergic to the meds they gave me too because I have a rash all over and my head hurts.". Coronavirus screen: At this time, the client does not indicate any symptoms associated with coronavirus-19. Ebola Screen: Patient negative for fever greater than or equal to 101.5 degrees Fahrenheit, and additional compatible Ebola Virus Disease symptoms. Onset: The symptoms/episode began/occurred gradually. Anaphylaxis evaluation, no signs or symptoms of anaphylaxis were noted. Initial Sepsis Screen: Does the patient meet any 2 criteria? No. Patient's initial sepsis screen is negative. Does the patient have a suspected source of infection? No. Patient's initial sepsis screen is negative. Risk Assessment: Do you want to hurt yourself or someone else? Patient reports no desire to harm self or others. Onset of symptoms was June 28, 2020. 17:15 Method Of Arrival: Ambulatory j 17:15 Acuity: IESHA 4 jd3 Triage Assessment: 17:15 General: Appears distressed, uncomfortable, Behavior is cooperative, appropriate for bp age, anxious. Pain: Denies pain. EENT: No deficits noted. Neuro: No deficits noted. Cardiovascular: No deficits noted. Respiratory: Airway is patent Respiratory effort is even, unlabored. GI: No signs and/or symptoms were reported involving the gastrointestinal system. : No signs and/or symptoms were reported regarding the genitourinary system. Derm: Rash noted that is itchy. Musculoskeletal: No deficits noted. Historical: - Allergies: 17:18 Hydrocodone-Acetaminophen; jd3 - Home Meds: 17:18 lisinopril Oral [Active]; jd3 - PMHx: 17:18 Hypertension; jd3 - PSHx: 17:18 tubal ; jd3 - Immunization history:: Adult Immunizations not immunized. - Social history:: Smoking status: Patient denies any tobacco usage or history of. Screenin:15 Abuse screen: Denies threats or abuse. Denies injuries from another. Nutritional bp screening: No deficits noted. Tuberculosis screening: No symptoms or risk factors identified. Fall Risk None identified. Assessment: 17:15 General: SEE TRIAGE NOTE. bp 18:57 Reassessment: PT D/C HOME AMBULATORY, DX WITH URTICARIA. bp 18:57 Respiratory: Airway is patent Respiratory effort is even, unlabored, Breath sounds are bp clear bilaterally. Vital Signs: 17:18 BP 164 / 93; Pulse 63; Resp 16 S; Temp 97.9(TE); Pulse Ox 97% on R/A; Weight 80.74 kg jd3 (R); Height 5 ft. 4 in. (162.56 cm) (R); Pain 7/10; 17:18 Body Mass Index 30.55 (80.74 kg, 162.56 cm) jd3 ED Course: 17:11 Patient arrived in ED. am2 17:15 Patient has correct armband on for positive identification. Bed in low position. Call bp light in reach. Side rails up X2. 17:17 Triage completed. jd3 17:19 Arm band placed on. jd3 17:34 Nabeel Gomez, AMANDA is PHCP. pm1 17:34 Jose Luis Couch MD is Attending Physician. pm1 17:43 Goyo Hicks, LEVAR is Primary Nurse. bp 18:57 No provider procedures requiring assistance completed. Patient did not have IV access bp during this emergency room visit. Administered Medications: 18:00 Drug: Decadron (dexamethasone) 10 mg Route: IM; Site: left deltoid; bp 19:02 Follow up: Response: No adverse reaction bp 18:00 Drug: traMADol 50 mg Route: PO; bp 19:02 Follow up: Response: No adverse reaction bp 18:00 Drug: Pepcid (famotidine) 20 mg Route: PO; bp 19:02 Follow up: Response: No adverse reaction bp 18:00 Drug: Benadryl (diphenhydrAMINE) 25 mg Route: PO; bp 19:02 Follow up: Response: No adverse reaction bp Outcome: 18:49 Discharge ordered by . pm1 18:57 Discharged to home ambulatory. bp 18:57 Condition: stable 18:57 Discharge instructions given to patient, Instructed on discharge instructions, follow up and referral plans. medication usage, Demonstrated understanding of instructions, follow-up care, medications, Prescriptions given X 2. 19:02 Patient left the ED. bp Signatures: Nabeel Gomez NP PHYSICAL INTEGRATION PRACTITIONER pm1 Kathrin Naik am2 Gustabo Yoder RN RN jd3 Goyo Hicks RN RN bp
[2020-06-29 19:12] VITALS: BP 164/93; TEMP 97.9; O2SAT 97
== END 2020-06-29 19:02 | disposition home or self-care (01) ==
LOC: ER 17:11
DX: L50.9 Urticaria, unspecified (principal); I10 Essential (primary) hypertension; Z88.5 Allergy status to narcotic agent
CPT/HCPCS: 96372; 99283; J1100

== ENCOUNTER 2020-07-06 18:24 | Emergency (ER) | payer SELFPAY ==
--- OUTSIDE RECORDS SUMMARY | 2020-07-06 18:26 | XMS REPORT | Continuity of Care Document ---
:1965 Author Organization [facility] t Address [address] [place] [address] Dr. James [address] [place] [id number] Care Team Providers Name Role Phone Unavailable Unavailable Unavailable Problems This patient has no known problems. Allergies, Adverse Reactions, Alerts This patient has no known allergies or adverse reactions. Medications This patient has no known medications. Procedures This patient has no known procedures. Results This patient has no known results.
--- NOTE | 2020-07-06 19:58 | ER ---
Nurse's Notes [facility] Name: Brianna Avila Age: 55 yrs Sex: Female : 1965 Arrival Date: 07/06/2020 Time: 18:24 Bed 7 Private MD: Diagnosis: Irritant contact dermatitis due to other chemical products-hair dye Presentation: 07/06 18:39 Chief complaint: Patient states: Hair dye job Tuesday. Had a reaction to her scalp, ll1 small blisters, redness, swelling. Started taking hydroxyzine and Bactrim DS 06/27/20. Tuesday, started to have rash and itching to neck, face, upper body, both ears. Believes its a reaction to Bactrim. Both ears are red and swollen now. No fever. Coronavirus screen: Client denies travel out of the [place] in the last 14 days. At this time, the client does not indicate any symptoms associated with coronavirus-19. Ebola Screen: Patient denies travel to an Ebola-affected area in the 21 days before illness onset. Onset: The symptoms/episode began/occurred Tuesday. Anaphylaxis evaluation, no signs or symptoms of anaphylaxis were noted. Initial Sepsis Screen: Does the patient meet any 2 criteria? No. Patient's initial sepsis screen is negative. Does the patient have a suspected source of infection? Yes: Skin breakdown/wound. Risk Assessment: Do you want to hurt yourself or someone else? Patient reports no desire to harm self or others. Onset of symptoms was July 04, 2020. 18:39 Method Of Arrival: Ambulatory ll1 18:39 Acuity: IESHA 3 ll1 Triage Assessment: 20:00 General: Appears in no apparent distress. comfortable, Behavior is calm, cooperative. mg2 Historical: - Allergies: 18:45 Hydrocodone-Acetaminophen; ll1 - PMHx: 18:45 Hypertension; ll1 - PSHx: 18:45 tubal ; ear SX; ll1 - Immunization history:: Flu vaccine is not up to date. - Social history:: Smoking status: Patient denies any tobacco usage or history of. Screenin:00 Abuse screen: Denies threats or abuse. Denies injuries from another. Nutritional mg2 screening: No deficits noted. 20:00 Tuberculosis screening: No symptoms or risk factors identified. Fall Risk None mg2 identified. Assessment: 20:00 General: Appears in no apparent distress. comfortable. Pain: Denies pain. Neuro: Level mg2 of Consciousness is awake, alert, obeys commands, Oriented to person, place, time, situation. Cardiovascular: Capillary refill < 3 seconds Patient's skin is warm and dry. Respiratory: Airway is patent Respiratory effort is even, unlabored, Respiratory pattern is regular, symmetrical, Breath sounds are clear. GI: No signs and/or symptoms were reported involving the gastrointestinal system. : No signs and/or symptoms were reported regarding the genitourinary system. EENT: No signs and/or symptoms were reported regarding the EENT system. Derm: Skin is pink, warm \T\ dry. normal, Rash noted that is draining clear fluid, red, urticaria, on scalp, right ear and chest. Musculoskeletal: Circulation, motion, and sensation intact. Capillary refill < 3 seconds. Vital Signs: 18:39 BP 151 / 87; Pulse 78; Resp 17; Temp 97.9; Pulse Ox 99% ; Weight 77.11 kg; Height 5 ft. ll1 4 in. (162.56 cm); Pain 8/10; 18:39 Body Mass Index 29.18 (77.11 kg, 162.56 cm) ll1 ED Course: 18:24 Patient arrived in ED. ds1 18:44 Triage completed. ll1 18:45 Arm band placed on. ll1 19:36 Nabeel Gomez NP is PHCP. pm1 19:36 Alberto Patino MD is Attending Physician. pm1 20:00 Patient has correct armband on for positive identification. mg2 20:00 No provider procedures requiring assistance completed. Patient did not have IV access mg2 during this emergency room visit. 20:08 Itz Carvajal, LEVAR is Primary Nurse. mg2 Administered Medications: 20:07 Drug: Decadron (dexamethasone) 10 mg Route: IM; Site: right deltoid; mg2 20:07 Follow up: Response: No adverse reaction; Medication administered at discharge. mg2 20:07 Drug: Benadryl (diphenhydrAMINE) 50 mg Route: PO; mg2 20:07 Follow up: Response: No adverse reaction; Medication administered at discharge. mg2 20:07 Drug: Pepcid (famotidine) 20 mg Route: PO; mg2 20:07 Follow up: Response: No adverse reaction; Medication administered at discharge. mg2 Outcome: 19:57 Discharge ordered by MD. pm1 20:07 Discharged to home ambulatory. mg2 20:07 Condition: stable 20:07 Discharge instructions given to patient, Instructed on discharge instructions, follow up and referral plans. medication usage, Demonstrated understanding of instructions, follow-up care, medications, Prescriptions given X 3. 20:08 Patient left the ED. mg2 Signatures: Rowan Kyle ds1 Nabeel Gomez NP SPINDLE MA[employer]ER pm1 Itz Carvajal RN RN mg2 Kady Fischer RN RN ll1 Corrections: (The following items were deleted from the chart) 18:45 18:39 Pulse 78bpm; Resp 17bpm; Pulse Ox 99%; Temp 97.9F; 77.11 kg; Height 5 ft. 4 in.; ll1 BMI: 29.1; Pain 8/10; ll1
--- NOTE | 2020-07-06 19:58 | EDPHYS ---
Physician Documentation [facility] Name: Brianna Avila Age: 55 yrs Sex: Female : 1965 Arrival Date: 07/06/2020 Time: 18:24 Bed 7 Private MD: ED Physician Alberto Patino HPI: 07/06 19:49 This 55 yrs old Female presents to ER via Ambulatory with complaints of pm1 Allergic Reaction. 19:49 The patient presents with itching, redness of skin. Onset: The symptoms/episode pm1 began/occurred 06/25/2020. Associated signs and symptoms: The patient has no apparent associated signs or symptoms. Possible causes: Hair dye. At home the patient or guardian has treated the symptoms with nothing. Severity of symptoms: in the emergency department the symptoms are worse. The patient has been recently seen at the [facility] Emergency Department, for similar complaints On 06/27/2020, Patient was seen for allergic reaction/contact dermatitis to hair dye. On 06/29/2020, Patient came to the ER with complaints of rash and itching that she believed were an allergic to Bactrim. Patient has refused to take steroids since the 06/27/2020 visit. I educated her on the need for it on her 06/29/2020. Patient has not taken any steroids prescribed to her and is reporting increased rash to her scalp and ear . Historical: - Allergies: 18:45 Hydrocodone-Acetaminophen; ll1 - PMHx: 18:45 Hypertension; ll1 - PSHx: 18:45 tubal ; ear SX; ll1 - Immunization history:: Flu vaccine is not up to date. - Social history:: Smoking status: Patient denies any tobacco usage or history of. ROS: 19:49 Constitutional: Negative for fever, chills, and weight loss. pm1 19:49 Cardiovascular: Negative for chest pain, palpitations, and edema, Respiratory: Negative for shortness of breath, cough, wheezing, and pleuritic chest pain, Abdomen/GI: Negative for abdominal pain, nausea, vomiting, diarrhea, and constipation, Back: Negative for injury and pain, MS/Extremity: Negative for injury and deformity. 19:49 Neuro: Negative for headache, weakness, numbness, tingling, and seizure. 19:49 ENT: Positive for Ear swelling, Negative for sore throat, difficulty swallowing, difficulty handling secretions. 19:49 Skin: Positive for rash, swelling, of the scalp and left ear. Exam: 19:49 Constitutional: This is a well developed, well nourished patient who is awake, alert, pm1 and in no acute distress. Head/Face: Normocephalic, atraumatic. 19:49 MS/ Extremity: Pulses equal, no cyanosis. Neurovascular intact. Full, normal range of motion. 19:49 Cardiovascular: Rate: normal, Rhythm: regular, Pulses: no pulse deficits are appreciated. 19:49 Respiratory: Exam negative for acute changes, respiratory distress, shortness of breath. 19:49 Skin: Appearance: consistent with contact dermatitis, on the scalp and left ear. 19:49 Neuro: Exam negative for acute changes, Orientation: is normal, Mentation: is normal, Motor: is normal, moves all fours, Sensation: is normal, no obvious gross deficits. Vital Signs: 18:39 BP 151 / 87; Pulse 78; Resp 17; Temp 97.9; Pulse Ox 99% ; Weight 77.11 kg; Height 5 ft. ll1 4 in. (162.56 cm); Pain 8/10; 18:39 Body Mass Index 29.18 (77.11 kg, 162.56 cm) ll1 MDM: 19:40 Patient medically screened. pm1 19:49 Data reviewed: vital signs. Data interpreted: Pulse oximetry: on room air is 99 %. pm1 Interpretation: normal. 19:56 Counseling: I had a detailed discussion with the patient and/or guardian regarding: the pm1 historical points, exam findings, and any diagnostic results supporting the discharge/admit diagnosis, the need for outpatient follow up, a forensic sergeant, a family practitioner, to return to the emergency department if symptoms worsen or persist or if there are any questions or concerns that arise at home. Administered Medications: 20:07 Drug: Decadron (dexamethasone) 10 mg Route: IM; Site: right deltoid; mg2 20:07 Follow up: Response: No adverse reaction; Medication administered at discharge. mg2 20:07 Drug: Benadryl (diphenhydrAMINE) 50 mg Route: PO; mg2 20:07 Follow up: Response: No adverse reaction; Medication administered at discharge. mg2 20:07 Drug: Pepcid (famotidine) 20 mg Route: PO; mg2 20:07 Follow up: Response: No adverse reaction; Medication administered at discharge. mg2 Disposition: 07/07 04:22 Co-signature as Attending Physician, Alberto Patino MD. 7 Disposition: 07/06/20 19:57 Discharged to Home. Impression: Irritant contact dermatitis due to other chemical products - hair dye. - Condition is Stable. - Discharge Instructions: Contact Dermatitis. - Prescriptions for Prednisone 20 mg Oral Tablet - take 3 tablet by ORAL route once daily for 5 days; 15 tablet. Benadryl 25 mg Oral Capsule - take 1 capsule by ORAL route every 6 hours As needed; 30 tablet. Pepcid 20 mg Oral Tablet - take 1 tablet by ORAL route every 12 hours for 10 days; 20 tablet. - Medication Reconciliation Form, Thank You Letter, Antibiotic Education, Prescription Opioid Use form. - Follow up: Emergency Department; When: As needed; Reason: Worsening of condition. Follow up: Private Physician; When: 2 - 3 days; Reason: Recheck today's complaints, Continuance of care, Re-evaluation by your physician. - Problem is new. - Symptoms have improved. Signatures: Nabeel Gomez, PARTS COORDINATOR PARTS COORDINATOR pm1 Itz Carvajal RN RN mg2 aKdy Fischer RN RN 1 Alberto Patino MD MD [facility] Corrections: (The following items were deleted from the chart) 07/06 20:08 19:57 07/06/2020 19:57 Discharged to Home. Impression: Irritant contact dermatitis due mg2 to other chemical products - hair dye. Condition is Stable. Forms are Medication Reconciliation Form, Thank You Letter, Antibiotic Education, Prescription Opioid Use. Follow up: Emergency Department; When: As needed; Reason: Worsening of condition. Follow up: Private Physician; When: 2 - 3 days; Reason: Recheck today's complaints, Continuance of care, Re-evaluation by your physician. Problem is new. Symptoms have improved. pm1
[2020-07-06] MEDS ORDERED: DIPHENHYDRAMINE 25 MG TAB/CAP ONE (20:19)
[2020-07-06] MEDS ORDERED: dexAMETHasone 10 MG/ML VIAL ONE (20:19)
[2020-07-06] MEDS ORDERED: FAMOTIDINE 20 MG TAB ONE (20:19)
[2020-07-06 20:44] VITALS: BP 151/87; TEMP 97.9; O2SAT 99
== END 2020-07-06 20:08 | disposition home or self-care (01) ==
LOC: ER 18:24
DX: L24.5 Irritant contact dermatitis due to other chemical products (principal); I10 Essential (primary) hypertension; Z88.5 Allergy status to narcotic agent
CPT/HCPCS: 96372; 99283; J1100

== ENCOUNTER 2020-07-21 19:44 | Emergency (ER) | payer SELFPAY ==
--- OUTSIDE RECORDS SUMMARY | 2020-07-21 19:48 | XMS REPORT | Continuity of Care Document ---
:1965 Author Organization [facility] t Address [address] [place] [address] Dr. James [address] [place] [id number] Care Team Providers Name Role Phone Unavailable Unavailable Unavailable Problems This patient has no known problems. Allergies, Adverse Reactions, Alerts This patient has no known allergies or adverse reactions. Medications This patient has no known medications. Procedures This patient has no known procedures. Results This patient has no known results.
--- NOTE | 2020-07-21 20:51 | ER ---
Nurse's Notes [facility] Name: Brianna Avila Age: 55 yrs Sex: Female : 1965 Arrival Date: 07/21/2020 Time: 19:58 Bed Waiting Private MD: Diagnosis: Presentation: 07/21 20:05 Chief complaint: Patient states: Started last night, I have rashes on my wrists then I ca1 started having trouble breathing. Now, I feel like my throat is closing. 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 Coronavirus screen: Client denies travel out of the [place] in the last 14 days. At this time, the client does not indicate any symptoms associated with coronavirus-19. Ebola Screen: Patient negative for fever greater than or equal to 101.5 degrees Fahrenheit, and additional compatible Ebola Virus Disease symptoms Patient denies exposure to infectious person. Patient denies travel to an Ebola-affected area in the 21 days before illness onset. No symptoms or risks identified at this time. Initial Sepsis Screen: Does the patient meet any 2 criteria? No. Patient's initial sepsis screen is negative. Does the patient have a suspected source of infection? No. Patient's initial sepsis screen is negative. Risk Assessment: Do you want to hurt yourself or someone else? Patient reports no desire to harm self or others. Onset of symptoms was July 21, 2020. 20:05 Method Of Arrival: Ambulatory ca1 20:05 Acuity: IESHA 2 ca1 Historical: - Allergies: 20:08 Hydrocodone-Acetaminophen; ca1 - Home Meds: 20:08 lisinopril Oral [Active]; ca1 - PMHx: 20:08 Hypertension; ca1 - PSHx: 20:08 tubal ; ear SX; ca1 - Immunization history:: Client reports having NOT received the Covid vaccine. Flu vaccine is not up to date. - Social history:: Smoking status: Patient denies any tobacco usage or history of. Assessment: 20:47 Reassessment: Called from the lobby, no answer. 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 If I feel worse, I will come back via ambulance". Vital Signs: 20:05 BP 176 / 85; Pulse 53; Resp 16 S; Temp 97.0; Pulse Ox 100% on R/A; Weight 80.74 kg (R); ca1 Height 5 ft. 4 in. (162.56 cm) (R); 20:05 Body Mass Index 30.55 (80.74 kg, 162.56 cm) ca1 ED Course: 19:58 Patient arrived in ED. am4 20:07 Triage completed. ca1 20:08 Arm band placed on right wrist. ca1 20:45 Conor Chang PA is PHCP. [facility] 20:45 Jose Luis Couch MD is Attending Physician. [facility] 20:49 Patient's name was called from ER lobby. No response. Unable to locate patient. Will ca1 disposition as left without being seen by a provider. Administered Medications: No medications were administered Outcome: 20:50 Patient left the ED. ca1 Signatures: Conor Chang PA PA jmm Acob, Cheryl, RN RN ca1 Lauren Ulloa am4 Corrections: (The following items were deleted from the chart) 20:41 20:05 Acuity: IESHA 3 ca1 ca1
[2020-07-21 22:58] VITALS: BP 176/85; TEMP 97; O2SAT 100
== END 2020-07-21 20:50 | disposition left against medical advice (07) ==
LOC: ER 19:44
DX: Z53.21 Procedure and treatment not carried out due to patient leaving prior to being seen by health care provider (principal)
CPT/HCPCS: 99281

== ENCOUNTER 2020-07-23 14:39 | Emergency (ER) | payer SELFPAY ==
--- OUTSIDE RECORDS SUMMARY | 2020-07-23 14:42 | XMS REPORT | Continuity of Care Document ---
:1965 Author Organization [facility] t Address [address] [place] [address] Dr. James [address] [place] [id number] Care Team Providers Name Role Phone Unavailable Unavailable Unavailable Problems This patient has no known problems. Allergies, Adverse Reactions, Alerts This patient has no known allergies or adverse reactions. Medications This patient has no known medications. Procedures This patient has no known procedures. Results This patient has no known results.
--- NOTE | 2020-07-23 15:36 | ER ---
Nurse's Notes [facility] Name: Brianna Avila Age: 55 yrs Sex: Female : 1965 Arrival Date: 07/23/2020 Time: 14:42 Bed 30 Private MD: Diagnosis: Dermatitis, unspecified;Cellulitis and acute lymphangitis of face and neck-Scalp;Irritant contact dermatitis Presentation: 07/23 14:53 Chief complaint: Patient states: rash to hair dye that happened 3-4 weeks ago, reports em rash that caba and is itchy that has been on scalp, neck, on the underarm's, and under both breasts since, denies fever. Coronavirus screen: Client denies travel out of the [place] in the last 14 days. Ebola Screen: Patient negative for fever greater than or equal to 101.5 degrees Fahrenheit, and additional compatible Ebola Virus Disease symptoms Patient denies exposure to infectious person. Patient denies travel to an Ebola-affected area in the 21 days before illness onset. No symptoms or risks identified at this time. Initial Sepsis Screen: Does the patient meet any 2 criteria? No. Patient's initial sepsis screen is negative. Does the patient have a suspected source of infection? No. Patient's initial sepsis screen is negative. Risk Assessment: Do you want to hurt yourself or someone else? Patient reports no desire to harm self or others. Onset of symptoms was July 23, 2020. 14:53 Method Of Arrival: Ambulatory em 14:53 Acuity: IESHA 4 em Historical: - Allergies: 14:57 Hydrocodone-Acetaminophen; em - PMHx: 14:57 Hypertension; em - PSHx: 14:57 tubal ; ear SX; em - Immunization history:: Adult Immunizations up to date. - Social history:: Smoking status: Patient denies any tobacco usage or history of. - Family history:: not pertinent. Screenin:12 Abuse screen: Denies threats or abuse. Denies injuries from another. Nutritional zb screening: No deficits noted. Tuberculosis screening: No symptoms or risk factors identified. Fall Risk None identified. Assessment: 16:10 General: Appears in no apparent distress. uncomfortable, Behavior is calm, cooperative, zb appropriate for age. Pain: Complains of pain in left base of the skull and left occipital area and left temporal area and left side of the back of head and left frontal area and forehead and top of head and face and right base of the skull and right occipital area and right side of the back of head and right frontal area and left ear and right ear Pain currently is 5 out of 10 on a pain scale. Quality of pain is described as burning, aching. Neuro: Level of Consciousness is awake, alert, obeys commands, Oriented to person, place, time, situation. Cardiovascular: Capillary refill < 3 seconds Patient's skin is warm and dry. Respiratory: No deficits noted. GI: No deficits noted. : No deficits noted. Derm: Rash noted that is macular, itchy, red, raised, on left base of the skull and left occipital area and left temporal area and left side of the back of head and left frontal area and forehead and top of head and face and right base of the skull and right occipital area and right side of the back of head and right frontal area and left ear and right ear. Musculoskeletal: Circulation, motion, and sensation intact. Range of motion: intact in all extremities. Vital Signs: 14:53 BP 138 / 75; Pulse 70; Resp 18; Temp 97.9; Pulse Ox 99% on R/A; Weight 83.91 kg; Height em 5 ft. 4 in. (162.56 cm); Pain 0/10; 14:53 Body Mass Index 31.75 (83.91 kg, 162.56 cm) em ED Course: 14:42 Patient arrived in ED. mr 14:57 Triage completed. em 14:57 Arm band placed on. em 14:59 Madhuri Solis RN is Primary Nurse. zb 15:06 Jose Luis Couch MD is Attending Physician. emily 16:00 cleaned rash area with saline and gauze. zb 16:12 Patient has correct armband on for positive identification. Bed in low position. Call zb light in reach. Side rails up X 1. Pulse ox on. NIBP on. Door closed. Warm blanket given. 16:12 No provider procedures requiring assistance completed. Patient did not have IV access zb during this emergency room visit. Administered Medications: 16:00 Drug: Bactroban (mupirocin) Ointment 2 % 1 application Route: Topical; Site: rash; zb 16:18 Follow up: Response: No adverse reaction zb 16:00 Drug: Bactrim (trimethoprim-sulfamethoxazole) (160 mg-800 mg (DS) 1 tablet Route: PO; zb 16:18 Follow up: Response: No adverse reaction zb 16:00 Drug: Doxycycline 200 mg Route: PO; zb 16:18 Follow up: Response: No adverse reaction zb 16:00 Drug: predniSONE 60 mg Route: PO; zb 16:18 Follow up: Response: No adverse reaction zb 16:00 Drug: Benadryl (diphenhydrAMINE) 50 mg Route: IM; Site: right deltoid; zb 16:18 Follow up: Response: No adverse reaction zb 16:00 Drug: Pepcid (famotidine) 40 mg Route: PO; zb 16:08 Follow up: Response: Medication administered at discharge. zb Outcome: 15:35 Discharge ordered by . emily 16:12 Discharged to home ambulatory. zb 16:12 Condition: stable 16:12 Discharge instructions given to patient, Instructed on discharge instructions, follow up and referral plans. medication usage, Demonstrated understanding of instructions, follow-up care, medications, Prescriptions given X 5 16:18 Patient left the ED. zb Signatures: Jose Luis Couch MD MD cha Rivera, Mary mr Munoz, Edgar, RN RN em Brown, Zipporah, RN RN zjuan m
--- NOTE | 2020-07-23 15:37 | EDPHYS ---
Physician Documentation [facility] Name: Brianna Avila Age: 55 yrs Sex: Female : 1965 Arrival Date: 07/23/2020 Time: 14:42 Bed 30 Private MD: ED Physician Jose Luis Couch HPI: 07/23 15:29 This 55 yrs old Female presents to ER via Ambulatory with complaints of Rash. emily 15:29 The patient's rash thought to be caused by allergies, Dermatitis. The rash is located emily on the right ear, left ear, right frontal area, right side of the back of head, right occipital area and right base of the skull. The rash can be described as erythematous, patchy, raised. Onset: The symptoms/episode began/occurred 5 day(s) ago. Associated signs and symptoms: Pertinent positives: burning sensation, itching, nausea, Pain. Severity of symptoms: At their worst the symptoms were moderate in the emergency department the symptoms are unchanged. The patient has not experienced similar symptoms in the past. Historical: - Allergies: 14:57 Hydrocodone-Acetaminophen; em - PMHx: 14:57 Hypertension; em - PSHx: 14:57 tubal ; ear SX; em - Immunization history:: Adult Immunizations up to date. - Social history:: Smoking status: Patient denies any tobacco usage or history of. - Family history:: not pertinent. ROS: 15:29 Constitutional: Negative for fever, chills, and weight loss, Eyes: Negative for injury, emily pain, redness, and discharge, ENT: Negative for injury, pain, and discharge, Neck: Negative for injury, pain, and swelling, Cardiovascular: Negative for chest pain, palpitations, and edema, Respiratory: Negative for shortness of breath, cough, wheezing, and pleuritic chest pain, Abdomen/GI: Negative for abdominal pain, nausea, vomiting, diarrhea, and constipation, Back: Negative for injury and pain, : Negative for injury, bleeding, discharge, and swelling, MS/Extremity: Negative for injury and deformity, Neuro: Negative for headache, weakness, numbness, tingling, and seizure, Psych: Negative for depression, anxiety, suicide ideation, homicidal ideation, and hallucinations, Allergy/Immunology: Negative for hives, rash, and allergies, Endocrine: Negative for neck swelling, polydipsia, polyuria, polyphagia, and marked weight changes, Hematologic/Lymphatic: Negative for swollen nodes, abnormal bleeding, and unusual bruising. 15:29 Skin: Positive for cellulitis, rash, swelling, of the top of head, forehead, left frontal area, left side of the back of head, left temporal area, left occipital area, left base of the skull, right frontal area, right side of the back of head, right occipital area and right base of the skull. Exam: 15:29 Constitutional: This is a well developed, well nourished patient who is awake, alert, emily and in no acute distress. Eyes: Pupils equal round and reactive to light, extra-ocular motions intact. Lids and lashes normal. Conjunctiva and sclera are non-icteric and not injected. Cornea within normal limits. Periorbital areas with no swelling, redness, or edema. ENT: Nares patent. No nasal discharge, no septal abnormalities noted. Tympanic membranes are normal and external auditory canals are clear. Oropharynx with no redness, swelling, or masses, exudates, or evidence of obstruction, uvula midline. Mucous membranes moist. Neck: Trachea midline, no thyromegaly or masses palpated, and no cervical lymphadenopathy. Supple, full range of motion without nuchal rigidity, or vertebral point tenderness. No Meningismus. Chest/axilla: Normal chest wall appearance and motion. Nontender with no deformity. No lesions are appreciated. Cardiovascular: Regular rate and rhythm with a normal S1 and S2. No gallops, murmurs, or rubs. Normal PMI, no JVD. No pulse deficits. Respiratory: Lungs have equal breath sounds bilaterally, clear to auscultation and percussion. No rales, rhonchi or wheezes noted. No increased work of breathing, no retractions or nasal flaring. Abdomen/GI: Soft, non-tender, with normal bowel sounds. No distension or tympany. No guarding or rebound. No evidence of tenderness throughout. Back: No spinal tenderness. No costovertebral tenderness. Full range of motion. Female : Normal external genitalia. MS/ Extremity: Pulses equal, no cyanosis. Neurovascular intact. Full, normal range of motion. Neuro: Awake and alert, GCS 15, oriented to person, place, time, and situation. Cranial nerves II-XII grossly intact. Motor strength 5/5 in all extremities. Sensory grossly intact. Cerebellar exam normal. Normal gait. Psych: Awake, alert, with orientation to person, place and time. Behavior, mood, and affect are within normal limits. 15:29 Head/face: Noted is rash, swelling, tenderness, that is moderate, of the top of head, left frontal area, left side of the back of head, left occipital area, left base of the skull, right frontal area, right side of the back of head, right occipital area and right base of the skull. Vital Signs: 14:53 BP 138 / 75; Pulse 70; Resp 18; Temp 97.9; Pulse Ox 99% on R/A; Weight 83.91 kg; Height em 5 ft. 4 in. (162.56 cm); Pain 0/10; 14:53 Body Mass Index 31.75 (83.91 kg, 162.56 cm) em MDM: 15:07 Patient medically screened. [facility] 15:33 Data reviewed: vital signs, nurses notes, lab test result(s). Data interpreted: Cardiac [facility] monitor: rate is 70 beats/min, rhythm is regular, Pulse oximetry: on room air is 99 %. Counseling: I had a detailed discussion with the patient and/or guardian regarding: the historical points, exam findings, and any diagnostic results supporting the discharge/admit diagnosis, lab results. 07/23 15:28 Order name: Blood Glucose Level; Complete Time: 16:19 [facility] 07/23 15:52 Order name: Misc. Order: clean ears, saline gauze; Complete Time: 16:08 [facility] Administered Medications: 16:00 Drug: Bactroban (mupirocin) Ointment 2 % 1 application Route: Topical; Site: rash; zb 16:18 Follow up: Response: No adverse reaction zb 16:00 Drug: Bactrim (trimethoprim-sulfamethoxazole) (160 mg-800 mg (DS) 1 tablet Route: PO; zb 16:18 Follow up: Response: No adverse reaction zb 16:00 Drug: Doxycycline 200 mg Route: PO; zb 16:18 Follow up: Response: No adverse reaction zb 16:00 Drug: predniSONE 60 mg Route: PO; zb 16:18 Follow up: Response: No adverse reaction zb 16:00 Drug: Benadryl (diphenhydrAMINE) 50 mg Route: IM; Site: right deltoid; zb 16:18 Follow up: Response: No adverse reaction zb 16:00 Drug: Pepcid (famotidine) 40 mg Route: PO; zb 16:08 Follow up: Response: Medication administered at discharge. zb Disposition: 07/23/20 15:35 Discharged to Home. Impression: Dermatitis, unspecified, Cellulitis and acute lymphangitis of face and neck - Scalp, Irritant contact dermatitis. - Condition is Stable. - Discharge Instructions: Contact Dermatitis, Rash, Rash, [id number], Contact Dermatitis, [id number]. - Prescriptions for Benadryl 25 mg Oral Capsule - take 1 capsule by ORAL route every 6 hours As needed; 30 tablet. Pepcid 20 mg Oral Tablet - take 1 tablet by ORAL route every 12 hours for 10 days; 20 tablet. Doxycycline Hyclate 100 mg Oral Tablet - take 1 tablet by ORAL route every 12 hours; 20 tablet. Bactrim DS 800- 160 mg Oral Tablet - take 1 tablet by ORAL route every 12 hours for 10 days; 20 tablet. Prednisone 20 mg Oral Tablet - take 2 tablet by ORAL route once daily for 5 days; 10 tablet. - Medication Reconciliation Form, Thank You Letter, Antibiotic Education, Prescription Opioid Use form. - Follow up: Private Physician; When: 2 - 3 days; Reason: Recheck today's complaints, Re-evaluation by your physician. - Problem is new. - Symptoms have improved. Signatures: Jose Luis Couch MD MD cha Munoz, Edgar, RN RN em Brown, Zipporah, RN RN zjuan m Corrections: (The following items were deleted from the chart) 16:18 15:35 07/23/2020 15:35 Discharged to Home. Impression: Dermatitis, unspecified; zb Cellulitis and acute lymphangitis of face and neck - Scalp; Irritant contact dermatitis. Condition is Stable. Forms are Medication Reconciliation Form, Thank You Letter, Antibiotic Education, Prescription Opioid Use. Follow up: Private Physician; When: 2 - 3 days; Reason: Recheck today's complaints, Re-evaluation by your physician. Problem is new. Symptoms have improved. emily
[2020-07-23] MEDS ORDERED: DIPHENHYDRAMINE 50 MG/ML VIAL ONE (16:15)
[2020-07-23] MEDS ORDERED: DOXYCYCLINE 100 MG CAP PO ONE (16:15)
[2020-07-23] MEDS ORDERED: FAMOTIDINE 20 MG TAB ONE (16:15)
[2020-07-23] MEDS ORDERED: SMZ./TMP. 800/160 MG TABLET ONE (16:15)
[2020-07-23] MEDS ORDERED: predniSONE 20 MG TAB ONE (16:15)
[2020-07-23] MEDS ORDERED: MUPIROCIN 2% OINT 22GM TUBE TOP ONE (16:16)
[2020-07-23 16:30] VITALS: BP 138/75; TEMP 97.9; O2SAT 99
== END 2020-07-23 16:18 | disposition home or self-care (01) ==
LOC: ER 14:39
DX: L24.9 Irritant contact dermatitis, unspecified cause (principal); L03.811 Cellulitis of head [any part, except face]; L03.891 Acute lymphangitis of head [any part, except face]; I10 Essential (primary) hypertension; Z88.5 Allergy status to narcotic agent
CPT/HCPCS: 82947; 96372; 99284; J1200; J7512

== ENCOUNTER 2020-08-05 00:25 | Emergency (ER) | payer SELFPAY ==
--- OUTSIDE RECORDS SUMMARY | 2020-08-05 00:28 | XMS REPORT | Continuity of Care Document ---
:1965 Author Organization [facility] t Address [address] [place] [address] Dr. James [address] [place] [id number] Care Team Providers Name Role Phone Unavailable Unavailable Unavailable Problems This patient has no known problems. Allergies, Adverse Reactions, Alerts This patient has no known allergies or adverse reactions. Medications This patient has no known medications. Procedures This patient has no known procedures. Results This patient has no known results.
[2020-08-05] MEDS ORDERED: KETOROLAC 30 MG/ML INJ ONE (01:59)
[2020-08-05] MEDS ORDERED: METHYLPREDNISOLONE 125 MG INJ ONE (01:59)
--- NOTE | 2020-08-05 02:11 | ER ---
Nurse's Notes [facility] Name: Brianna Avila Age: 55 yrs Sex: Female : 1965 Arrival Date: 08/05/2020 Time: 00:27 Bed 20 Private MD: Diagnosis: Dermatitis, unspecified;Cellulitis of head [any part, except face] Presentation: 08/05 00:44 Chief complaint: Patient states: rash to scalp X 2 weeks, was clear for one week and iw now it's back even worse, now it's oozing and feels like it's on fire, initially had an allergic reaction to hair dye. Coronavirus screen: At this time, the client does not indicate any symptoms associated with coronavirus-19. Ebola Screen: Patient negative for fever greater than or equal to 101.5 degrees Fahrenheit, and additional compatible Ebola Virus Disease symptoms Patient denies exposure to infectious person. Patient denies travel to an Ebola-affected area in the 21 days before illness onset. No symptoms or risks identified at this time. Initial Sepsis Screen: Does the patient meet any 2 criteria? No. Patient's initial sepsis screen is negative. Does the patient have a suspected source of infection? No. Patient's initial sepsis screen is negative. Risk Assessment: Do you want to hurt yourself or someone else? Patient reports no desire to harm self or others. Onset of symptoms was May 21, 2020. 00:44 Method Of Arrival: Ambulatory iw 00:44 Acuity: IESHA 3 iw Triage Assessment: 01:30 Pain: Also complains of no other associated symptoms. jm8 01:31 Headache History: Denies prior headaches. jm8 Historical: - Allergies: 00:46 Hydrocodone-Acetaminophen; iw - Home Meds: 00:46 lisinopril Oral [Active]; iw - PMHx: 00:46 Hypertension; iw - PSHx: 00:46 tubal ; ear SX; iw - Immunization history:: Adult Immunizations not up to date. - Social history:: Smoking status: Patient denies any tobacco usage or history of. Screenin:30 Abuse screen: Denies threats or abuse. Denies injuries from another. Nutritional jm8 screening: No deficits noted. Tuberculosis screening: No symptoms or risk factors identified. Fall Risk None identified. Assessment: 01:28 General: Appears in no apparent distress. uncomfortable, Behavior is calm, cooperative, jm8 appropriate for age. Pain: Complains of pain in scalp Pain currently is 7 out of 10 on a pain scale. Quality of pain is described as burning, Pain began 1 day ago. Neuro: No deficits noted. Level of Consciousness is awake, alert, obeys commands, Oriented to person, place, time. Cardiovascular: No deficits noted. Respiratory: No deficits noted. GI: No deficits noted. No signs and/or symptoms were reported involving the gastrointestinal system. : No deficits noted. No signs and/or symptoms were reported regarding the genitourinary system. EENT: No deficits noted. No signs and/or symptoms were reported regarding the EENT system. Derm: Skin is intact, is healthy with good turgor, Reports burning, itching, pain that is 7 out of 10 on a pain scale. peeling, tingling, since yesterday. Musculoskeletal: No deficits noted. No signs and/or symptoms reported regarding the musculoskeletal system. Vital Signs: 00:44 BP 153 / 85; Pulse 80; Resp 16; Temp 98.0; Pulse Ox 100% on R/A; iw 02:33 BP 145 / 78; Pulse 78; Resp 16; Pulse Ox 100% on R/A; jm8 Narinder Coma Score: 04:34 Eye Response: spontaneous(4). Verbal Response: oriented(5). Motor Response: obeys tw4 commands(6). Total: 15. ED Course: 00:27 Patient arrived in ED. ag3 00:46 Triage completed. iw 00:46 Arm band placed on. iw 01:01 Michele Everett MD is Attending Physician. tw4 01:30 No provider procedures requiring assistance completed. jm8 01:31 Patient has correct armband on for positive identification. Bed in low position. Call jm8 light in reach. Side rails up X2. Adult w/ patient. 02:33 Patient did not have IV access during this emergency room visit. jm8 Administered Medications: 01:42 Drug: Cleocin (clindamycin) 150 mg Route: PO; jm8 02:33 Follow up: Response: No adverse reaction jm8 01:48 Drug: TORadol (ketorolac) 60 mg Route: IM; Site: left ventrogluteal; jm8 02:34 Follow up: Response: No adverse reaction; Pain is decreased jm8 01:48 Drug: SOLU-Medrol (methylPREDNISolone sodium succinate) 125 mg Route: IM; Site: right 8 ventrogluteal; 02:34 Follow up: Response: No adverse reaction jm8 Outcome: 02:10 Discharge ordered by . daryl 02:32 Discharged to home ambulatory. jm8 02:32 Condition: good 02:32 Discharge instructions given to patient, Instructed on discharge instructions, follow up and referral plans. medication usage, Demonstrated understanding of instructions, follow-up care, medications, Prescriptions given X 2. 02:34 Patient left the ED. jm8 Signatures: Dalila Galicia, RN RN iw Michele Everett MD MD tw4 Kirstin Malik 3 Zev Vega RN RN jm8
--- NOTE | 2020-08-05 02:11 | EDPHYS ---
Physician Documentation [facility] Name: Brianna Avila Age: 55 yrs Sex: Female : 1965 Arrival Date: 08/05/2020 Time: 00:27 Bed 20 Private MD: ED Physician Michele Everett HPI: 08/05 04:34 This 55 yrs old Female presents to ER via Ambulatory with complaints of tw4 Headache, Rash. 04:34 The patient complains of pain to the right occipital area and right base of the skull. tw4 The patient describes the headache as constant. Onset: The symptoms/episode began/occurred 1 month(s) ago. Associated signs and symptoms: Pertinent positives: rash, Pertinent negatives: altered mental status, dizziness, fever, malaise, nausea, neck stiffness, paresthesias, Photophobia sinus congestion, sinus tenderness, vision changes, vision loss. Severity of symptoms: At its worst the pain was moderate, in the emergency department the pain is unchanged. Headache History: Denies prior headaches. The symptoms are alleviated by nothing. the symptoms are aggravated by nothing. The patient has experienced a previous episode, last month. Historical: - Allergies: 00:46 Hydrocodone-Acetaminophen; iw - Home Meds: 00:46 lisinopril Oral [Active]; iw - PMHx: 00:46 Hypertension; iw - PSHx: 00:46 tubal ; ear SX; iw - Immunization history:: Adult Immunizations not up to date. - Social history:: Smoking status: Patient denies any tobacco usage or history of. ROS: 04:34 Constitutional: Negative for fever, chills, and weight loss, Eyes: Negative for injury, tw4 pain, redness, and discharge, Cardiovascular: Negative for chest pain, palpitations, and edema, Respiratory: Negative for shortness of breath, cough, wheezing, and pleuritic chest pain, Abdomen/GI: Negative for abdominal pain, nausea, vomiting, diarrhea, and constipation, Back: Negative for injury and pain, MS/Extremity: Negative for injury and deformity, Skin: Negative for injury, rash, and discoloration, Psych: Negative for depression, anxiety, suicide ideation, homicidal ideation, and hallucinations. Exam: 04:34 Constitutional: This is a well developed, well nourished patient who is awake, alert, tw4 and in no acute distress. 04:34 Eyes: Pupils equal round and reactive to light, extra-ocular motions intact. Lids and lashes normal. Conjunctiva and sclera are non-icteric and not injected. Cornea within normal limits. Periorbital areas with no swelling, redness, or edema. ENT: Nares patent. No nasal discharge, no septal abnormalities noted. Tympanic membranes are normal and external auditory canals are clear. Oropharynx with no redness, swelling, or masses, exudates, or evidence of obstruction, uvula midline. Mucous membranes moist. Chest/axilla: Normal chest wall appearance and motion. Nontender with no deformity. No lesions are appreciated. Cardiovascular: Regular rate and rhythm with a normal S1 and S2. No gallops, murmurs, or rubs. Normal PMI, no JVD. No pulse deficits. Respiratory: Lungs have equal breath sounds bilaterally, clear to auscultation and percussion. No rales, rhonchi or wheezes noted. No increased work of breathing, no retractions or nasal flaring. Abdomen/GI: Soft, non-tender, with normal bowel sounds. No distension or tympany. No guarding or rebound. No evidence of tenderness throughout. Back: No spinal tenderness. No costovertebral tenderness. Full range of motion. MS/ Extremity: Pulses equal, no cyanosis. Neurovascular intact. Full, normal range of motion. Neuro: Awake and alert, GCS 15, oriented to person, place, time, and situation. Cranial nerves II-XII grossly intact. Motor strength 5/5 in all extremities. Sensory grossly intact. Cerebellar exam normal. Normal gait. 04:34 Head/face: Noted is rash, of the left occipital area, left base of the skull, right occipital area and right base of the skull. Vital Signs: 00:44 BP 153 / 85; Pulse 80; Resp 16; Temp 98.0; Pulse Ox 100% on R/A; iw 02:33 BP 145 / 78; Pulse 78; Resp 16; Pulse Ox 100% on R/A; jm8 Chaplin Coma Score: 04:34 Eye Response: spontaneous(4). Verbal Response: oriented(5). Motor Response: obeys tw4 commands(6). Total: 15. MDM: 01:01 Patient medically screened. tw4 04:34 Differential diagnosis: cerebral abscess, cervical epidural bleed, epidural hematoma, tw4 herpes zoster, hypertensive headache, meningoencephalitis, trigeminal neuralgia, uremia. Data reviewed: vital signs, nurses notes. Data interpreted: Pulse oximetry: Interpretation: normal. Counseling: I had a detailed discussion with the patient and/or guardian regarding: the historical points, exam findings, and any diagnostic results supporting the discharge/admit diagnosis. Medication response: Toradol partially relieved the patient's pain. Response to treatment: the patient's symptoms have markedly improved after treatment, and as a result, I will discharge patient. Administered Medications: 01:42 Drug: Cleocin (clindamycin) 150 mg Route: PO; jm8 02:33 Follow up: Response: No adverse reaction [facility] 01:48 Drug: TORadol (ketorolac) 60 mg Route: IM; Site: left ventrogluteal; 8 02:34 Follow up: Response: No adverse reaction; Pain is decreased 8 01:48 Drug: SOLU-Medrol (methylPREDNISolone sodium succinate) 125 mg Route: IM; Site: right 8 ventrogluteal; 02:34 Follow up: Response: No adverse reaction 8 Disposition: 08/05/20 02:10 Discharged to Home. Impression: Dermatitis, unspecified, Cellulitis of head [any part, except face]. - Condition is Stable. - Discharge Instructions: Cellulitis, Adult, Contact Dermatitis, Rash. - Prescriptions for Cleocin 300 mg Oral Capsule - take 1 capsule by ORAL route every 6 hours for 10 days; 40 capsule. Medrol (Ricky) 4 mg Oral Tablets, Dose Pack - take 1 tablet by ORAL route as directed - follow package instructions; 1 packet. - Medication Reconciliation Form, Thank You Letter, Antibiotic Education, Prescription Opioid Use form. - Follow up: Private Physician; When: Upon discharge from the Emergency Department; Reason: Recheck today's complaints, Continuance of care, Re-evaluation by your physician. - Problem is new. - Symptoms have improved. Signatures: Dalila Galicia, LEVAR CRISTOBAL Michele Everett MD MD tw4 Zev Vega RN RN jm8 Corrections: (The following items were deleted from the chart) 02:34 02:10 08/05/2020 02:10 Discharged to Home. Impression: Dermatitis, unspecified; jm8 Cellulitis of head [any part, except face]. Condition is Stable. Forms are Medication Reconciliation Form, Thank You Letter, Antibiotic Education, Prescription Opioid Use. Follow up: Private Physician; When: Upon discharge from the Emergency Department; Reason: Recheck today's complaints, Continuance of care, Re-evaluation by your physician. Problem is new. Symptoms have improved. tw4
[2020-08-05 02:59] VITALS: TEMP 98; O2SAT 100
[2020-08-05 03:01] VITALS: BP 145/78
== END 2020-08-05 02:34 | disposition home or self-care (01) ==
LOC: ER 00:25
DX: L03.811 Cellulitis of head [any part, except face] (principal); L30.9 Dermatitis, unspecified; I10 Essential (primary) hypertension; Z88.5 Allergy status to narcotic agent
CPT/HCPCS: 96372; 99283; J2930

== ENCOUNTER 2020-10-02 12:13 | Emergency (ER) | payer SELFPAY ==
--- OUTSIDE RECORDS SUMMARY | 2020-10-02 12:15 | XMS REPORT | Continuity of Care Document ---
:1965 Author Organization [facility] t Address [address] [place] [address] Dr. James [address] [place] [id number] Care Team Providers Name Role Phone Unavailable Unavailable Unavailable Problems This patient has no known problems. Allergies, Adverse Reactions, Alerts This patient has no known allergies or adverse reactions. Medications This patient has no known medications. Procedures This patient has no known procedures. Results This patient has no known results.
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
--- NOTE | 2020-10-02 14:15 | RAD REPORT ---
EXAM DESCRIPTION: RAD - Femur Left - 10/02/2020 1:46 pm CLINICAL HISTORY: Left leg pain FINDINGS: No fracture is seen. 12 millimeter bony structure extends off of the lateral aspect of the mid left femur. It likely is be nign. Follow up x-ray 3 months recommended to assess stability
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
--- NOTE | 2020-10-02 14:47 | ER ---
Nurse's Notes [facility] Name: Brianna Avila Age: 55 yrs Sex: Female : 1965 Arrival Date: 10/02/2020 Time: 12:16 Bed DIS8 Private MD: Diagnosis: Fall on same level from slipping, tripping and stumbling without subsequent striking against object;Contusion of left knee;Pain in left leg Presentation: 10/02 12:24 Chief complaint: EMS states: Left thigh and knee pain after mechanical fall on wet hb floor at store today. Coronavirus screen: At this time, the client does not indicate any symptoms associated with coronavirus-19. Ebola Screen: No symptoms or risks identified at this time. Initial Sepsis Screen: Does the patient meet any 2 criteria? No. Patient's initial sepsis screen is negative. Does the patient have a suspected source of infection? No. Patient's initial sepsis screen is negative. Risk Assessment: Do you want to hurt yourself or someone else? Patient reports no desire to harm self or others. Onset of symptoms was October 02, 2020. 12:24 Method Of Arrival: EMS: [facility] 12:24 Acuity: IESHA 4 hb Historical: - Allergies: 12:26 hydrocodone; hb - Home Meds: 12:26 lisinopril Oral [Active]; hb - PMHx: 12:26 Hypertension; hb - Social history:: Smoking status: Patient denies any tobacco usage or history of. Screenin:32 Abuse screen: Denies threats or abuse. Denies injuries from another. Nutritional ss screening: No deficits noted. Tuberculosis screening: Never had TB. Fall Risk None identified. Assessment: 14:32 General: Appears in no apparent distress. comfortable, Behavior is calm, cooperative. ss Pain: Complains of pain in left knee and left quadriceps Pain currently is 8 out of 10 on a pain scale. Quality of pain is described as aching, tender, Pain began suddenly, Is continuous. Neuro: Level of Consciousness is awake, alert, obeys commands, Oriented to person, place, time, situation. Cardiovascular: Capillary refill < 3 seconds is brisk in bilateral fingers. Respiratory: Airway is patent Respiratory effort is even, unlabored, Respiratory pattern is regular, symmetrical. GI: Patient currently denies abdominal pain, diarrhea, nausea, vomiting. : No signs and/or symptoms were reported regarding the genitourinary system. EENT: Nares are clear Oral mucosa is moist. Derm: Skin is pink, warm \T\ dry. Musculoskeletal: Swelling mild swelling present to L knee. Vital Signs: 12:24 BP 126 / 74; Pulse 71; Resp 16; Temp 98.3; Pulse Ox 100% on R/A; Pain 8/10; hb ED Course: 12:16 Patient arrived in ED. ds1 12:26 Triage completed. hb 12:26 Arm band placed on. hb 13:47 Knee Left 3 View XRAY In Process Unspecified. EDMS 13:47 Pelvis XRAY In Process Unspecified. EDMS 13:47 Femur Left XRAY In Process Unspecified. EDMS 14:32 Patient has correct armband on for positive identification. Bed in low position. Call ss light in reach. 14:36 Aranza Omalley FNP-C is [facility]. kb 14:36 Jose Luis Couch MD is Attending Physician. kb 14:56 Enma Roy, LEVAR is Primary Nurse. ss 15:08 No provider procedures requiring assistance completed. Patient did not have IV access ss during this emergency room visit. Administered Medications: 15:00 Drug: traMADol 50 mg Route: PO; ss 15:11 Follow up: Response: No adverse reaction; Medication administered at discharge. ss Outcome: 14:47 Discharge ordered by . kb 15:08 Discharged to home ambulatory. ss 15:08 Condition: good 15:08 Discharge instructions given to patient, Instructed on discharge instructions, follow up and referral plans. medication usage, Demonstrated understanding of instructions, follow-up care, medications, Prescriptions given X 1. 15:11 Patient left the ED. ss Signatures: Dispatcher [employer] EDAR Aranza Omalley FNP-C FNP-Ckb Sanford, Demi ds1 Enma Roy RN RN Yael Lynn RN RN
--- NOTE | 2020-10-02 14:47 | EDPHYS ---
Physician Documentation [facility] Name: Brianna Avila Age: 55 yrs Sex: Female : 1965 Arrival Date: 10/02/2020 Time: 12:16 Bed DIS8 Private MD: ED Physician Jose Luis Couch HPI: 10/02 14:45 This 55 yrs old Female presents to ER via EMS with complaints of Fall Injury. kb 14:45 Details of fall: The patient fell from an upright position, while walking. Onset: The kb symptoms/episode began/occurred today. Associated injuries: The patient sustained left knee and left quadriceps, painful injury. Severity of symptoms: At their worst the symptoms were moderate, in the emergency department the symptoms are unchanged. The patient has not experienced similar symptoms in the past. The patient has not recently seen a physician. Pt reports she tripped due to her shoes, fell and landed on left knee. c/o pain to left thigh and knee. . Historical: - Allergies: 12:26 hydrocodone; hb - Home Meds: 12:26 lisinopril Oral [Active]; hb - PMHx: 12:26 Hypertension; hb - Social history:: Smoking status: Patient denies any tobacco usage or history of. ROS: 14:44 Constitutional: Negative for fever, chills, and weight loss. kb 14:44 MS/extremity: Positive for pain, of the left quadriceps and left knee. 14:44 All other systems are negative. Exam: 14:45 Constitutional: This is a well developed, well nourished patient who is awake, alert, kb and in no acute distress. Head/Face: Normocephalic, atraumatic. Respiratory: Respirations even and unlabored. No increased work of breathing, no retractions or nasal flaring. Neuro: Awake and alert, GCS 15, oriented to person, place, time, and situation. Moves all extremities. Normal gait. Psych: Awake, alert, with orientation to person, place and time. Behavior, mood, and affect are within normal limits. 14:45 Musculoskeletal/extremity: Extremities: grossly normal except: noted in the left knee: contusion, pain, swelling, noted in the left quadriceps: pain, ROM: intact in all extremities, Circulation is intact in all extremities. Sensation intact. Weight bearing: can bear weight with assistance only. Vital Signs: 12:24 BP 126 / 74; Pulse 71; Resp 16; Temp 98.3; Pulse Ox 100% on R/A; Pain 8/10; hb MDM: 14:37 Patient medically screened. kb 14:41 Data reviewed: vital signs, nurses notes. Data interpreted: Pulse oximetry: on room air kb is 100 %. Interpretation: normal. Counseling: I had a detailed discussion with the patient and/or guardian regarding: the historical points, exam findings, and any diagnostic results supporting the discharge/admit diagnosis, radiology results, the need for outpatient follow up, a orthopedic surgeon, to return to the emergency department if symptoms worsen or persist or if there are any questions or concerns that arise at home. 10/02 12:32 Order name: Knee Left 3 View XRAY; Complete Time: 14:36 hb 10/02 12:32 Order name: Pelvis XRAY; Complete Time: 14:36 hb 10/02 12:32 Order name: Femur Left XRAY; Complete Time: 14:36 10/02 14:42 Order name: Matty Wrap; Complete Time: 15:00 kb Administered Medications: 15:00 Drug: traMADol 50 mg Route: PO; ss 15:11 Follow up: Response: No adverse reaction; Medication administered at discharge. ss Disposition: 10/03 09:02 Co-signature as Attending Physician, Jose Luis Couch MD I agree with the assessment and emily plan of care. Disposition Summary: 10/02/20 14:47 Discharge Ordered Location: Home kb Condition: Stable kb Diagnosis - Fall on same level from slipping, tripping and stumbling without subsequent kb striking against object - Contusion of left knee kb - Pain in left leg kb Followup: kb - With: Emergency Department - When: As needed - Reason: Worsening of condition Followup: kb - With: Private Physician - When: 2 - 3 days - Reason: Recheck today's complaints, Continuance of care, Re-evaluation by your physician Discharge Instructions: - Discharge Summary Sheet kb - Musculoskeletal Pain kb Forms: - Medication Reconciliation Form kb - Thank You Letter kb - Antibiotic Education kb - Prescription Opioid Use kb Prescriptions: - Diclofenac Sodium 75 mg Oral tablet,delayed release (DR/EC) - take 1 tablet by ORAL route 2 times per day As needed; 30 tablet; Refills: 0, kb Product Selection Permitted Signatures: Dispatcher [employer] Aranza Ortega, LACING STRING CUTTER-C JACE-Jose Luis Bejarano MD MD cha Smirch, Shelby, RN RN ss Yael Lynn, LEVAR RN hb
[2020-10-02 15:17] VITALS: BP 126/74; TEMP 98.3; O2SAT 100
[2020-10-02] MEDS ORDERED: TRAMADOL HCL 50 MG TAB ONE (15:21)
== END 2020-10-02 15:11 | disposition home or self-care (01) ==
LOC: ER 12:13
DX: S80.02XA Contusion of left knee, initial encounter (principal); W01.0XXA Fall on same level from slipping, tripping and stumbling without subsequent striking against object, initial encounter; Y93.01 Activity, walking, marching and hiking; Z88.5 Allergy status to narcotic agent; I10 Essential (primary) hypertension
CPT/HCPCS: 72170; 99284

== ENCOUNTER 2020-10-27 03:25 | Emergency (ER) | payer SELFPAY ==
--- OUTSIDE RECORDS SUMMARY | 2020-10-27 03:29 | XMS REPORT | Continuity of Care Document ---
:1965 Author Organization [facility] t Address [address] [place] [address] Dr. James [address] [place] [id number] Care Team Providers Name Role Phone Unavailable Unavailable Unavailable Problems This patient has no known problems. Allergies, Adverse Reactions, Alerts This patient has no known allergies or adverse reactions. Medications This patient has no known medications. Procedures This patient has no known procedures. Results This patient has no known results.
--- NOTE | 2020-10-27 05:53 | EDPHYS ---
Physician Documentation [facility] Name: Brianna Avila Age: 55 yrs Sex: Female : 1965 Arrival Date: 10/27/2020 Time: 03:27 Bed DIS2 Private MD: ED Physician Alberto Patino HPI: 10/27 05:10 This 55 yrs old Female presents to ER via Ambulatory with complaints of Nose mh7 Bleed, COVID + LAST TUESDAY. 05:10 The patient presents with a nose bleed, that is apparently anterior, from the left mh7 nare, occurred dry air, that is intermittent small amount causative factors include: unknown, and the bleeding resolved prior to arrival. Onset: The symptoms/episode began/occurred this morning, today. Modifying factors: The symptoms are alleviated by pressure, the symptoms are aggravated by nothing. Associated signs and symptoms: Loss of consciousness: the patient experienced no loss of consciousness, Pertinent negatives: blurred vision, chest pain, cough, ear ache, fever, lightheadedness, nausea, rhinorrhea, shortness of breath, sore throat, vertigo. Severity of symptoms: At their worst the symptoms were moderate today, in the emergency department the symptoms have resolved and did so just prior to arrival. Historical: - Allergies: 03:54 HYDROCODONE; bb - Home Meds: 03:54 None [Active]; bb - PMHx: 03:54 Hypertension; bb - Immunization history:: Adult Immunizations up to date, Client reports having NOT received the Covid vaccine. - Social history:: Smoking status: Patient denies any tobacco usage or history of. ROS: 05:10 Constitutional: Negative for fever, chills, and weight loss, Eyes: Negative for injury, mh7 pain, redness, and discharge, Neck: Negative for injury, pain, and swelling, Cardiovascular: Negative for chest pain, palpitations, and edema, Respiratory: Negative for shortness of breath, cough, wheezing, and pleuritic chest pain, Abdomen/GI: Negative for abdominal pain, nausea, vomiting, diarrhea, and constipation, Back: Negative for injury and pain, : Negative for injury, bleeding, discharge, and swelling, MS/Extremity: Negative for injury and deformity, Skin: Negative for injury, rash, and discoloration, Neuro: Negative for headache, weakness, numbness, tingling, and seizure, Psych: Negative for depression, anxiety, suicide ideation, homicidal ideation, and hallucinations, Allergy/Immunology: Negative for hives, rash, and allergies, Endocrine: Negative for neck swelling, polydipsia, polyuria, polyphagia, and marked weight changes, Hematologic/Lymphatic: Negative for swollen nodes, abnormal bleeding, and unusual bruising. Exam: 05:10 Constitutional: This is a well developed, well nourished patient who is awake, alert, mh7 and in no acute distress. Head/Face: Normocephalic, atraumatic. Eyes: Pupils equal round and reactive to light, extra-ocular motions intact. Lids and lashes normal. Conjunctiva and sclera are non-icteric and not injected. Cornea within normal limits. Periorbital areas with no swelling, redness, or edema. ENT: Nares patent. No nasal discharge, no septal abnormalities noted. Tympanic membranes are normal and external auditory canals are clear. Oropharynx with no redness, swelling, or masses, exudates, or evidence of obstruction, uvula midline. Mucous membranes moist. Neck: Trachea midline, no thyromegaly or masses palpated, and no cervical lymphadenopathy. Supple, full range of motion without nuchal rigidity, or vertebral point tenderness. No Meningismus. Chest/axilla: Normal chest wall appearance and motion. Nontender with no deformity. No lesions are appreciated. Cardiovascular: Regular rate and rhythm with a normal S1 and S2. No gallops, murmurs, or rubs. Normal PMI, no JVD. No pulse deficits. Respiratory: Lungs have equal breath sounds bilaterally, clear to auscultation and percussion. No rales, rhonchi or wheezes noted. No increased work of breathing, no retractions or nasal flaring. Abdomen/GI: Soft, non-tender, with normal bowel sounds. No distension or tympany. No guarding or rebound. No evidence of tenderness throughout. Back: No spinal tenderness. No costovertebral tenderness. Full range of motion. Skin: Warm, dry with normal turgor. Normal color with no rashes, no lesions, and no evidence of cellulitis. MS/ Extremity: Pulses equal, no cyanosis. Neurovascular intact. Full, normal range of motion. Neuro: Awake and alert, GCS 15, oriented to person, place, time, and situation. Cranial nerves II-XII grossly intact. Motor strength 5/5 in all extremities. Sensory grossly intact. Cerebellar exam normal. Normal gait. Psych: Awake, alert, with orientation to person, place and time. Behavior, mood, and affect are within normal limits. Vital Signs: 03:52 BP 117 / 75; Pulse 59; Resp 16 S; Temp 99.1(O); Pulse Ox 99% on R/A; Weight 77.11 kg bb (R); Height 5 ft. 4 in. (162.56 cm) (R); Pain 0/10; 03:52 Body Mass Index 29.18 (77.11 kg, 162.56 cm) bb MDM: 05:49 Differential diagnosis: foreign body - resolved, trauma, sinusitis, epistaxis r/t mh7 trauma, spontaneous epistaxis. Data reviewed: vital signs, nurses notes. Data interpreted: Pulse oximetry: on room air is 99 %. Interpretation: normal. Counseling: I had a detailed discussion with the patient and/or guardian regarding: the historical points, exam findings, and any diagnostic results supporting the discharge/admit diagnosis, the need for outpatient follow up, an ENT specialist, to return to the emergency department if symptoms worsen or persist or if there are any questions or concerns that arise at home. Response to treatment: the patient's symptoms have resolved after treatment, the patient's blood pressure is in an acceptable range, mental status has returned to baseline, the patient no longer shows bradycardia, the patient is not short of breath, the patient is not tachycardic, the patient's pain is gone, the patient's temperature has normalized. 05:53 Patient medically screened. [facility] Administered Medications: 05:46 Not Given (Med not availablee): [place] Nasal [place] 0.65 % 2 sprays Intranasal once lp1 06:02 Drug: Afrin (oxymetazoline) Drops (0.05 %) 1 sprays Route: Intranasal; Site: both nares;lp1 06:02 Follow up: Response: Medication administered at discharge. lp1 Disposition Summary: 10/27/20 05:53 Discharge Ordered Location: [place] [id number] Problem: [facility] Symptoms: are resolved [facility] Condition: Stable mh Diagnosis - Epistaxis - Resolved mh7 Followup: [facility] - With: Private Physician - When: 1 - 2 days - Reason: Worsening of condition, Recheck today's complaints, Continuance of care, Re-evaluation by your physician Followup: [facility] - With: Ally Sommer MD - When: 1 - 2 days - Reason: Worsening of condition, Recheck today's complaints Discharge Instructions: - Discharge Summary Sheet [facility] - Nosebleed, Adult, [id number] [facility] Forms: - Medication Reconciliation Form [facility] - Thank You Letter [facility] - Antibiotic Education [facility] - Prescription Opioid Use [facility] Signatures: Priscilla Gould, RN RN bb Carla Alcantara RN RN lp1 Alberto Patino MD MD [facility]
--- NOTE | 2020-10-27 05:53 | ER ---
Nurse's Notes [facility] Name: Brianna Avila Age: 55 yrs Sex: Female : 1965 Arrival Date: 10/27/2020 Time: 03:27 Bed DIS2 Private MD: Diagnosis: Epistaxis-Resolved Presentation: 10/27 03:52 Chief complaint: Patient states: she was lying in bed this morning and felt her nose bb start running then noticed it was blood symptoms lasted less than 5 minutes but she coughed up blood clots. Coronavirus screen: Client reports previous positive COVID test result. Ebola Screen: No symptoms or risks identified at this time. Initial Sepsis Screen: Does the patient meet any 2 criteria? No. Patient's initial sepsis screen is negative. Does the patient have a suspected source of infection? No. Patient's initial sepsis screen is negative. Risk Assessment: Do you want to hurt yourself or someone else? Patient reports no desire to harm self or others. Onset of symptoms was October 27, 2020. 03:52 Method Of Arrival: Ambulatory bb 03:52 Acuity: IESHA 3 bb Triage Assessment: 03:54 General: Appears in no apparent distress. Behavior is calm, cooperative. Pain: Denies bb pain. EENT: Reports nose bleed. Neuro: Level of Consciousness is awake, alert, obeys commands, Oriented to person, place, time, situation. Cardiovascular: Capillary refill < 3 seconds Patient's skin is warm and dry. Respiratory: Respiratory effort is even, unlabored, Respiratory pattern is regular. GI: No deficits noted. Derm: Skin is dry, Skin is normal, Skin temperature is warm. Musculoskeletal: Circulation, motion, and sensation intact. Historical: - Allergies: 03:54 HYDROCODONE; bb - Home Meds: 03:54 None [Active]; bb - PMHx: 03:54 Hypertension; bb - Immunization history:: Adult Immunizations up to date, Client reports having NOT received the Covid vaccine. - Social history:: Smoking status: Patient denies any tobacco usage or history of. Screenin:03 Abuse screen: Denies threats or abuse. Denies injuries from another. Nutritional lp1 screening: No deficits noted. Tuberculosis screening: No symptoms or risk factors identified. Fall Risk None identified. Assessment: 06:02 General: Appears in no apparent distress. Behavior is calm, cooperative. Pain: Denies lp1 pain. Neuro: Level of Consciousness is awake, alert, obeys commands, Oriented to person, place, time, situation. Cardiovascular: Patient's skin is warm and dry. Respiratory: Respiratory effort is even, unlabored. GI: No signs and/or symptoms were reported involving the gastrointestinal system. : No signs and/or symptoms were reported regarding the genitourinary system. EENT: Reports nose bleed, resolved at this time . Derm: Skin is pink, warm \T\ dry. Musculoskeletal: No deficits noted. Vital Signs: 03:52 BP 117 / 75; Pulse 59; Resp 16 S; Temp 99.1(O); Pulse Ox 99% on R/A; Weight 77.11 kg bb (R); Height 5 ft. 4 in. (162.56 cm) (R); Pain 0/10; 03:52 Body Mass Index 29.18 (77.11 kg, 162.56 cm) ED Course: 03:27 Patient arrived in ED. 03:54 Triage completed. bb 03:54 Arm band placed on Patient placed in waiting room, Patient notified of wait time. bb 04:52 Alberto Patino MD is Attending Physician. 7 05:50 Carla Alcantraa RN is Primary Nurse. lp1 05:52 Ally Sommer MD is Referral Physician. 7 06:03 Patient has correct armband on for positive identification. lp1 06:03 No provider procedures requiring assistance completed. Patient did not have IV access lp1 during this emergency room visit. Administered Medications: 05:46 Not Given (Med not availablee): [place] Nasal [place] 0.65 % 2 sprays Intranasal once lp1 06:02 Drug: Afrin (oxymetazoline) Drops (0.05 %) 1 sprays Route: Intranasal; Site: both nares;lp1 06:02 Follow up: Response: Medication administered at discharge. lp1 Outcome: 05:53 Discharge ordered by . 7 06:03 Discharged to home ambulatory. lp1 06:03 Condition: good 06:03 Discharge instructions given to patient, Instructed on discharge instructions, follow up and referral plans. Demonstrated understanding of instructions, follow-up care. 06:03 Patient left the ED. lp1 Signatures: Priscilla Gould RN RN bb Carla Alcantara RN RN lp1 Alberto Patino MD MD [address]
[2020-10-27] MEDS ORDERED: OXYMETAZOLINE HCL 0.05% 15ML NAS ONE ×2 (06:06→06:18)
[2020-10-27 06:08] VITALS: BP 117/75; TEMP 99.1; O2SAT 99
== END 2020-10-27 06:03 | disposition home or self-care (01) ==
LOC: ER 03:25
DX: R04.0 Epistaxis (principal); I10 Essential (primary) hypertension; Z86.16 Personal history of COVID-19; Z88.5 Allergy status to narcotic agent
CPT/HCPCS: 99283